=== PATIENT | female | born 1970 | race Caucasian/White ===

== ENCOUNTER 2019-10-03 12:03 | Outpatient (CLI) | payer OTHER, SELFPAY ==
--- NOTE | ~2019-10-03 | XR_ITS ---
EXAMINATION: XR chest 2V DATE: 10/03/2019 12:38 INDICATION: Asthma. TECHNIQUE: Frontal and lateral views of the chest were obtained. COMPARISON: Chest 2 views 11/19/2017 FINDINGS: The chest demonstrates clear lungs without pneumonia, pleural effusion, or pneumothorax. Th e heart size is normal. There is a small hiatal hernia. IMPRESSION: 1. Small hiatal hernia. Reviewed, dictated and finalized at location A. SIT OPERATOR IMPRESSION: 1. Small hiatal hernia.
--- NOTE | ~2019-10-03 | XR_ITS ---
XR sinus min 3V DATE: 10/03/2019 12:37 INDICATION: Vertigo, ear complaint. Asthma. Smoker. TECHNIQUE: 5 views COMPARISON: None FINDINGS: The paranasal sinuses are well-developed and aerated. No air-fluid level is likely apparent new comparison thickening is noted. The mastoid air cells are normally developed and aerated. IMPRESSION: Negative Reviewed, dictated and finalized at location B. ERY STARTER IMPRESSION: Negative
== END 2019-10-03 12:04 | disposition home or self-care (01) ==
PROVIDERS: PCP Family Medicine; Visit Provider Family Medicine
DX: J01.90 Acute sinusitis, unspecified (principal); J45.909 Unspecified asthma, uncomplicated; H81.10 Benign paroxysmal vertigo, unspecified ear; F17.200 Nicotine dependence, unspecified, uncomplicated
CPT/HCPCS: 70220; 71046

== ENCOUNTER 2019-10-13 08:42 | Outpatient (CLI) | payer OTHER, SELFPAY ==
[2019-10-13 17:23] LABS: Basophils Absolute Auto 0.1 K/mm3 (0.0-0.1); Basophils Percent Auto 0.7 % (0.2-1.2); Eosinophils Absolute Auto 0.6 K/mm3 (0-0.3); Eosinophils Percent Auto 5.2 % (0-4.4); Hemoglobin 15.7 g/dL (12.0-15.0); Immature Granulocyte Absolute 0.05 K/mm3 (0.00-0.031); Immature Granulocyte Percent A 0.5 % (0-0.5); Lymphocytes Absolute Auto 1.79 K/mm3 (0.9-3.2); Lymphocytes Percent Auto 16.3 % (18.3-44.2); Mean Corpuscular Hemoglobin 29.3 pg (26-34); Mean Corpuscular Volume 91.4 fl (80-100); Mean Platelet Volume 11.1 fl (7.4-10.4); Monocytes Absolute Auto 0.8 K/mm3 (0.1-0.6); Monocytes Percent Auto 6.8 % (2.6-8.5); Neutrophils Absolute Auto 7.8 K/mm3 (1.3-6.7); Neutrophils Percent Auto 70.5 % (45.5-73.1); Platelet Count Result 286 k/mm3 (150-375); Red Blood Count 5.36 M/mm3 (4.2-5.4); Red Cell Distribution Width 13.9 % (11.5-14.5)
[2019-10-13 17:30] LABS: Add Urine Microscopic? YES; Appearance Urine Clear (Clear); Bacteria Urine Trace /hpf; Bilirubin Urine Negative (Negative); Blood Urine 1+ (Negative); Color Urine Yellow (Yellow); Glucose Urine UA Negative (Negative); Ketones Urine Negative (Negative); Leukocyte Esterase Ur Negative LEU/UL (Negative); Mucus Urine Rare /lpf; Nitrate Urine Negative (Negative); Protein Urine Negative (Negative); Squamous Epithelial Cell Urine Many /hpf (Few); Urobilinogen Urine Negative mg/dL (<2.0); WBC Urine 0-3 /hpf
[2019-10-13 17:44] LABS: Alanine Aminotransferase 10 U/L (4-35); Albumin Level 4.1 g/dL (3.5-5.1); Alkaline Phosphatase 109 U/L (38-126); Aspartate Amino Transferase 14 U/L (14-36); Bilirubin,Total 0.5 mg/dL (0.2-1.3); Blood Urea Nitrogen 13 mg/dL (7-17); Calcium 9.9 mg/dL (8.4-10.2); Carbon Dioxide 28 mmol/L (22-30); Chloride 99 mmol/L (98-107); Cholesterol 264 mg/dL (0-200); Estimated Glomerular Filt Rate > 60; Glucose 98 mg/dL (65-105); HDL Direct 51 mg/dL; Potassium 4.8 mmol/L (3.4-5.0); Sodium 137 mmol/L (137-145); Triglycerides 94 mg/dL (<150)
[2019-10-13 17:53] LABS: LDL Cholesterol Direct 200 mg/dL
[2019-10-13 18:12] LABS: Thyroid Stimulating Hormone 0.992 uIU/mL (0.465-4.680)
[2019-10-13 18:50] LABS: Folic Acid > 20.0 ng/mL (2.76->20)
[2019-10-16 07:17] LABS: C-Peptide 1.57 ng/mL (0.80-3.85); FSH 31.9 mIU/mL (***); Progesterone 0.7 ng/mL (***)
[2019-10-17 14:21] LABS: Lipoprotein A 198 nmol/L (<75)
[2019-10-19 20:45] LABS: Estradiol, Ultrasensitive 205 pg/mL
== END 2019-10-13 08:43 | disposition home or self-care (01) ==
PROVIDERS: PCP Family Medicine; Visit Provider Family Medicine
DX: R79.89 Other specified abnormal findings of blood chemistry (principal); Z79.899 Other long term (current) drug therapy; E78.5 Hyperlipidemia, unspecified; F17.200 Nicotine dependence, unspecified, uncomplicated; N99.89 Other postprocedural complications and disorders of genitourinary system; Z98.51 Tubal ligation status; J01.90 Acute sinusitis, unspecified; R19.7 Diarrhea, unspecified
CPT/HCPCS: 36415; 80053; 80061; 81001; 82306; 82607; 82670; 82746; 83001; 83695; 84144; 84443; 84681; 85025; 86140

== ENCOUNTER 2020-07-09 00:36 | Outpatient (CLI) | payer OTHER, SELFPAY ==
[2020-07-09 19:48] LABS: SARS-CoV-2 RNA PCR Negative
== END 2020-07-09 00:37 | disposition home or self-care (01) ==
LOC: ANHCOVIDDT 00:44
PROVIDERS: Visit Provider Internal Medicine Gastroenterology
DX: Z01.818 Encounter for other preprocedural examination (principal); Z20.828 Contact with and (suspected) exposure to other viral communicable diseases
CPT/HCPCS: 87635; C9803; U0003

== ENCOUNTER 2020-07-12 00:24 | Day surgery (SDC) | payer OTHER, SELFPAY ==
[2020-07-08 10:35] VITALS: BMI 25.8
[2020-07-12 06:42] VITALS: BP 142/97; PULSE 98; RESP 20; TEMP 36.3; O2SAT 98; BMI 24.7
[2020-07-12] MEDS: LACTATED RINGERS 1,000 ML 150 ML IV CONT (06:47)
--- NOTE | 2020-07-12 07:08 | WPDANESEPPF ---
Anes - Initial Pre Proc Eval Procedure: Operation Date: 07/12/20 07:30 Proposed Procedures p Colonoscopy - Dennis Avitia MD Date/Time: 07/12/20 07:08 Surgeon: Dennis Avitia MD Pre Op Diagnosis: Constipation Patient Data Age: 50 Gender: F Height: 1.52 m Weight: 57.6 kg Last Vital Signs Temp 36.3 C L 07/12/20 06:42 Pulse 98 07/12/20 06:42 Resp 20 07/12/20 06:42 BP 142/97 H 07/12/20 06:42 Pulse Ox 98 07/12/20 06:42 Allergies Allergy/AdvReac Type Severity Reaction Status Date / Time amoxicillin [From Augmentin] AdvReac Mild Vomiting Verified 07/08/20 10:29 clavulanic acid AdvReac Mild Vomiting Verified 07/08/20 10:29 [From Augmentin] Home Medications Medication Instructions Recorded Confirmed Type fluticasone propionate 50 1 spray NASAL DAILY 10/03/19 07/08/20 History mcg/actuation nasal spray,suspension linaclotide 72 mcg capsule 72 mcg PO DAILY #30 cap 06/27/20 07/08/20 Rx peg 3350-electrolytes 236 240 ml PO Q10M #4000 ml 07/01/20 Rx gram-22.74 gram-6.74 gram-5.86 gram solution albuterol sulfate [Ventolin HFA] 1 puff INHALATION PRN PRN 07/08/20 07/08/20 History budesonide-formoterol 2 puff INHALATION BID 07/08/20 07/08/20 History cetirizine [Zyrtec] 10 mg PO DAILY 07/08/20 07/08/20 History geriatric multivitamin-min 1 tablet PO DAILY 07/08/20 07/08/20 History [One-A-Day 50 Plus] rosuvastatin 5 mg PO DAILY 07/08/20 07/08/20 History Patient hx anesthesia problems: none Family hx anesthesia problems: none PMFSH Past Medical History Medical History (Updated 06/27/20 @ 14:48 by Dennis Avitia MD) Adhesions of uterus Asthma FHx: migraine headaches Hyperlipidemia Irritable bowel syndrome with constipation Mucus in stool Tobacco abuse Surgical History Surgical History H/O section H/O: hysterectomy Family History Family History Father Family history of hypercholesterolemia Hypertension Mother Family history of hypercholesterolemia Social History Social History Smoking packs per day: 0.75 Smoking cigarettes per day: 15.0 Years smoked: 40 Smoking pack-years: 30.00 Smoking status: Current every day smoker Tobacco type: cigarettes Second hand tobacco smoke exposure: Yes Alcohol intake: current Drinks per week: 0 Alcohol use details: 1 OR 2 DRINKS PER YEAR Substance use: never Substance use type: does not use Living arrangements: with family Spiritual care concerns: No Anes - Eval Final PreProcedure Day of Procedure 07/12/20 07:08 Patient weight: normal Heart: regular rate and rhythm Lungs: clear to auscultation and normal air movement Airway: Mallampati scale class II Neurological: alert and oriented Last oral intake: >/= 8 hours ASA classification: II Emergent: no Anesthetic plan: proceed Anesthesia type and monitoring: general GIVS Informed Consent: The patient's anesthetic plan and its attendant risks and benefits were discussed with the patient/family/POA. Questions were solicited and answers provided to the satisfaction of the patient/family/POA.
--- NOTE | 2020-07-12 07:34 | WPDHPUPDATE1 ---
History and Physical Update Update Date/Time: 07/12/20 07:34 History and Physical has been reviewed, including an updated exam of the patient. There are NO changes in the patient's condition. Risks, benefits, and alternatives have been discussed and questions answered. Patient agrees to proceed with procedure.
[2020-07-12 08:00] VITALS: BP 132/59; PULSE 99; RESP 21; O2SAT 98
[2020-07-12 08:10] VITALS: BP 120/59; PULSE 95; RESP 22; O2SAT 100
[2020-07-12 08:20] VITALS: BP 134/71; PULSE 90; RESP 20; O2SAT 100
== END 2020-07-12 08:28 | disposition home or self-care (01) ==
PROVIDERS: PCP Family Medicine; Visit Provider Internal Medicine Gastroenterology
PROC: 0DJD8ZZ Inspection of Lower Intestinal Tract, Via Natural or Artificial Opening Endoscopic (ICD-10-PCS; CPT 45378; principal; 2020-07-12 07:30)
DX: Z12.11 Encounter for screening for malignant neoplasm of colon (principal); K51.40 Inflammatory polyps of colon without complications; K62.3 Rectal prolapse; K64.4 Residual hemorrhoidal skin tags; J45.909 Unspecified asthma, uncomplicated; F17.210 Nicotine dependence, cigarettes, uncomplicated
CPT/HCPCS: 45385; 88305; J2704; J7120

== ENCOUNTER 2020-09-28 21:44 | Emergency (ER) | payer OTHER, SELFPAY ==
[2020-09-28 21:55] VITALS: BP 179/98; PULSE 80; RESP 15; TEMP 36.3; O2SAT 100
[2020-09-28] MEDS: PROCHLORPERAZINE EDISYLATE 10 MG/2 ML VIAL IV PUSH (23:06)
--- NOTE | 2020-09-28 23:07 | ED.DIZZY ---
HPI - Dizziness General Chief Complaint: Dizziness Stated Complaint: n/v, vertigo Time Seen by Provider: 09/28/20 22:29 Source: patient and family Mode of arrival: ambulatory Limitations: no limitations History of Present Illness HPI Narrative: 50-year-old female She has a past history of high blood pressure and of episodic vertigo Complains of onset of dizziness tonight while she was sitting and reading She notes severe rotational vertigo with nausea, no auditory symptoms or hearing loss, no headache, no visual symptoms Symptoms improve if she remains very still but are triggered by any change in position head movements or by looking around MD elicited complaint: dizziness Severity: severe Description: room spinning Related Data Home Medications Medication Instructions Recorded Confirmed fluticasone propionate 50 1 spray NASAL DAILY 10/03/19 07/08/20 mcg/actuation nasal spray,suspension albuterol sulfate [Ventolin HFA] 1 puff INHALATION PRN PRN 07/08/20 07/08/20 budesonide-formoterol 2 puff INHALATION BID 07/08/20 07/08/20 cetirizine [Zyrtec] 10 mg PO DAILY 07/08/20 07/08/20 geriatric multivitamin-min 1 tablet PO DAILY 07/08/20 07/08/20 [One-A-Day 50 Plus] rosuvastatin 5 mg PO DAILY 07/08/20 07/08/20 Allergies Allergy/AdvReac Type Severity Reaction Status Date / Time amoxicillin [From Augmentin] AdvReac Mild Vomiting Verified 09/28/20 22:26 clavulanic acid AdvReac Mild Vomiting Verified 09/28/20 22:26 [From Augmentin] Review of Systems Review of Systems: All systems reviewed & are unremarkable except as noted in HPI and below Constitutional: Constitutional: Denies chills, Denies fatigue, Denies fever(s), Denies headache(s) and Denies weakness Eyes: Eyes: Reports no additional eye complaints and Denies change in vision ENT: Reports as per HPI, Reports vertigo, Reports dizziness, Denies headache(s), Denies epistaxis, Denies nasal congestion and Denies sore throat Cardiovascular: Cardiovascular: Denies leg edema, Denies palpitations and Denies dyspnea Respiratory: Respiratory: Denies cough and Denies dyspnea Gastrointestinal: Gastrointestinal: Denies no additional gastrointestinal complaints, Reports nausea and Reports vomiting Genitourinary: Genitourinary: Denies urinary frequency Musculoskeletal: Musculoskeletal: Denies deformity, Denies muscle weakness and Denies numbness Integumentary/Breasts: Skin/Breast: Denies rash and Denies wounds Neurologic: Reports vertigo, Denies headache(s), Denies focal weakness, Denies numbness and Denies weakness Psychiatric: Psychiatric: Reports no additional psychiatric complaints Endocrine: Endocrine: Denies fatigue and Denies palpitations Hematologic/Lymphatic: Hematologic/Lymphatic: Denies easy bleeding and Denies easy bruising Allergic/Immunologic: Allergic/Immunologic: Denies wheezing [facility] Past Medical History Medical History (Updated 09/28/20 @ 23:57 by Neeraj Peterson MD) Adhesions of uterus Asthma FHx: migraine headaches Hyperlipidemia Irritable bowel syndrome with constipation Mucus in stool Rectocele Tobacco abuse Surgical History Surgical History H/O section H/O: hysterectomy Family History Family History Father Family history of hypercholesterolemia Hypertension Mother Family history of hypercholesterolemia Social History Social History Smoking packs per day: 0.75 Smoking cigarettes per day: 15.0 Years smoked: 40 Smoking pack-years: 30.00 Smoking status: Current every day smoker Tobacco type: cigarettes Second hand tobacco smoke exposure: Yes Alcohol intake: current Drinks per week: 0 Substance use: never Substance use type: does not use Spiritual care concerns: No Exam Const: General: no acut
[2020-09-29 00:20] VITALS: BP 148/90; PULSE 83; RESP 20; O2SAT 100
== END 2020-09-29 00:22 | disposition home or self-care (01) ==
PROVIDERS: Emergency Provider Emergency Medicine
DX: H81.10 Benign paroxysmal vertigo, unspecified ear (principal); J45.909 Unspecified asthma, uncomplicated; E78.5 Hyperlipidemia, unspecified; K58.1 Irritable bowel syndrome with constipation; F17.210 Nicotine dependence, cigarettes, uncomplicated
CPT/HCPCS: 96374; 99284; J0780

== ENCOUNTER 2020-11-18 12:53 | Emergency (ER) | payer OTHER, SELFPAY ==
--- NOTE | ~2020-11-18 | XR_ITS ---
XR shoulder RT min 2V DATE: 11/18/2020 13:41 INDICATION: Anterior shoulder pain since lifting 50 pound bag 2 weeks ago. Limited range of motion. TECHNIQUE: 4 views COMPARISON: None FINDINGS: No fracture or dislocation, periosteal reaction or bone destruction or abnormal soft tissue calcification of the right shoulder. IMPRESSION: Negative Reviewed, dictated and finalized at location B. IMPRESSION: Negative
[2020-11-18 13:06] VITALS: BP 167/77; PULSE 88; RESP 14; TEMP 36.8; O2SAT 98
--- NOTE | 2020-11-18 13:10 | ED.UPPEXIN ---
HPI - Extremity Injury (Upper) General Chief Complaint: Extremity Injury, Upper Stated Complaint: Shoulder Pain Time Seen by Provider: 11/18/20 13:33 Source: patient and RN notes reviewed Mode of arrival: ambulatory Limitations: no limitations History of Present Illness HPI narrative: 50-year-old female presents concern for injury to her right shoulder. Reports for 2 weeks she has had shoulder pain, has been unable to lift her right shoulder fully, has weakness in the shoulder. Reports 2 weeks ago she was lifting a heavy backpack at work when she felt a sudden pain to the lateral and anterior shoulder joint. Reports she has been using ibuprofen every 4 hours, activity modification with no relief. Denies any improvement in pain over the last 2 weeks. MD complaint: injury to: right and shoulder Related Data Home Medications Medication Instructions Recorded Confirmed fluticasone propionate 50 1 spray NASAL DAILY 10/03/19 11/18/20 mcg/actuation nasal spray,suspension albuterol sulfate [Ventolin HFA] 1 puff INHALATION PRN PRN 07/08/20 11/18/20 budesonide-formoterol 2 puff INHALATION BID 07/08/20 11/18/20 Allergies Allergy/AdvReac Type Severity Reaction Status Date / Time amoxicillin [From Augmentin] AdvReac Mild Vomiting Verified 11/18/20 13:19 clavulanic acid AdvReac Mild Vomiting Verified 11/18/20 13:19 [From Augmentin] Review of Systems Review of Systems: Narrative: CONSTITUTIONAL: Denies malaise, chills, sweats, or fever. CARDIOVASCULAR: Denies chest pain, palpitations, or edema. RESPIRATORY: Denies cough or dyspnea. SKIN: Denies bruising, reports anterior shoulder swelling MUSCULOSKELETAL: Reports shoulder pain, swelling, decreased strength, decreased range of motion NEUROLOGIC: Denies numbness All systems reviewed & are unremarkable except as noted in HPI and below PMFSH Past Medical History Medical History (Updated 11/18/20 @ 13:55 by Elisa Carver NP) Adhesions of uterus Asthma FHx: migraine headaches Hyperlipidemia Irritable bowel syndrome with constipation Mucus in stool Rectocele Tobacco abuse Surgical History Surgical History H/O section H/O: hysterectomy Family History Family History Father Family history of hypercholesterolemia Hypertension Mother Family history of hypercholesterolemia Social History Social History Smoking packs per day: 0.75 Smoking cigarettes per day: 15.0 Years smoked: 40 Smoking pack-years: 30.00 Smoking status: Current every day smoker Tobacco type: cigarettes Second hand tobacco smoke exposure: Yes Alcohol intake: current Drinks per week: 0 Substance use: never Substance use type: does not use Spiritual care concerns: No Comments At time of signature, agree with nursing past medical, surgical, social and family history. There is no relevant family history pertinent to the presenting complaint Exam Narrative: Exam Narrative: GENERAL: Well-appearing, well-nourished, and in no acute distress. HEAD: Normocephalic, atraumatic. EYES: PERRLA, conjunctivae clear NECK: Supple. CHEST: Speaks in full sentences. No respiratory distress. HEART: Regular rate and rhythm. Normal and equal peripheral pulses. EXTREMITIES: Right shoulder has normal sensation, limited range of motion. Mild anterior edema no ecchymosis. 3/5 strength with right shoulder abduction and abduction. Normal sensation with sensitivity to light touch and pain. Lateral tenderness. No open wounds, no skin tenting, no devitalized tissue or atrophy, no trophic changes, no obvious deformity, alignment normal, nearby joints and structures intact. Distal pulses palpable and equal bilaterally, skin warm, dry, pink. Capillary refill less than 3 seconds. SKIN: Warm, dry, no rash. NEURO: Alert an
== END 2020-11-18 14:04 | disposition home or self-care (01) ==
PROVIDERS: Emergency Provider Nurse Practitioner
DX: S49.91XA Unspecified injury of right shoulder and upper arm, initial encounter (principal); X50.0XXA Overexertion from strenuous movement or load, initial encounter; F17.210 Nicotine dependence, cigarettes, uncomplicated; J45.909 Unspecified asthma, uncomplicated; E78.5 Hyperlipidemia, unspecified
CPT/HCPCS: 73030; 99213; G0463

== ENCOUNTER 2021-10-24 16:25 | Emergency (ER) | payer OTHER, SELFPAY ==
[2021-10-24 16:31] VITALS: BP 174/89; PULSE 87; RESP 18; TEMP 36.8; O2SAT 100
--- NOTE | 2021-10-24 16:52 | ED.LOWEXIN ---
HPI - Extremity Injury (Lower) General Chief Complaint: Extremity Injury, Lower Stated Complaint: Right Knee Injury Time Seen by Provider: 10/24/21 16:42 Source: patient Mode of arrival: ambulatory Limitations: no limitations History of Present Illness HPI Narrative: 51-year-old female presented for complaint of right knee pain for 6 days. She has since been seen by her PCP 4 days ago, was instructed on rice therapy, given Toradol, has taken ibuprofen and reports significant improvement in pain and swelling. She denies known injury, no redness, swelling, or bruising to the knee at this time. She is able to walk with a steady gait. Denies numbness, tingling, or weakness. She has the knee wrapped with an Arslan wrap at this time. Of note, she presented abnormal lab work and states she was told yesterday by her PCP to go to the emergency room for further evaluation for elevated CRP and ESR. Related Data Home Medications Medication Instructions Recorded Confirmed albuterol sulfate See Rx Instructions .ROUTE .COMPLEX 10/24/21 10/24/21 enalapril maleate 10/24/21 fexofenadine mg 10/24/21 fluticasone propion-salmeterol INHALATION 10/24/21 [Advair Diskus] fluticasone propionate INTRANASAL 10/24/21 montelukast 10 mg PO DAILY 10/24/21 10/24/21 pantoprazole 40 mg PO DAILY 10/24/21 10/24/21 Allergies Allergy/AdvReac Type Severity Reaction Status Date / Time amoxicillin [From Augmentin] AdvReac Mild Vomiting Verified 10/24/21 16:44 clavulanic acid AdvReac Mild Vomiting Verified 10/24/21 16:44 [From Augmentin] Review of Systems Review of Systems: CONSTITUTIONAL: Denies body aches, fever, chills EYES: Denies visual changes ENT: Denies rhinorrhea, congestion CARDIOVASCULAR: Denies chest pain, palpitations, or edema. RESPIRATORY: Denies cough or dyspnea. GASTROINTESTINAL: Denies abdominal pain, nausea, vomiting, or diarrhea. SKIN: Endorses skin changes to RLE for 10 years MUSCULOSKELETAL: Endorses knee pain NEUROLOGIC: Denies headache, numbness, tingling, or weakness. PSYCH: Denies depression or anxiety. All systems reviewed & are unremarkable except as noted in HPI and below PMFSH Past Medical History Medical History (Updated 10/24/21 @ 16:55 by Zully Adams APRN) Adhesions of uterus Asthma FHx: migraine headaches Hyperlipidemia Irritable bowel syndrome with constipation Mucus in stool Rectocele Regurgitation of food Tobacco abuse Surgical History Surgical History H/O section H/O: hysterectomy Family History Family History Father Family history of hypercholesterolemia Hypertension Mother Family history of hypercholesterolemia Social History Social History Smoking packs per day: 0.75 Smoking cigarettes per day: 15.0 Years smoked: 40 Smoking pack-years: 30.00 Smoking status: Current every day smoker Tobacco type: cigarettes Second hand tobacco smoke exposure: Yes Alcohol intake: current Drinks per week: 0 Alcohol use details: 1 OR 2 DRINKS PER YEAR Substance use: never Substance use type: does not use Spiritual care concerns: No Comments At time of signature, I have reviewed and agree with nursing past medical, surgical, social and family history unless otherwise noted. Please see nursing chart for further information. There is no relevant family history pertinent to the presenting complaint Exam Narrative: GENERAL: Well-appearing, well-nourished, and in no acute distress. HEAD: Normocephalic, atraumatic. EYES: PERRLA, conjunctivae clear NECK: Supple. CHEST: Speaks in full sentences. No respiratory distress. HEART: Regular rate and rhythm. Normal and equal peripheral pulses. EXTREMITIES: right LE has normal strength and sensation, normal range of motion with flexion/extension/r
== END 2021-10-24 16:55 | disposition home or self-care (01) ==
PROVIDERS: Emergency Provider Nurse Practitioner Family
DX: M25.562 Pain in left knee (principal); M25.561 Pain in right knee; F17.210 Nicotine dependence, cigarettes, uncomplicated; E78.5 Hyperlipidemia, unspecified; J45.909 Unspecified asthma, uncomplicated
CPT/HCPCS: 99212; G0463

== ENCOUNTER 2021-11-05 06:55 | Inpatient (IN) | payer OTHER, SELFPAY ==
[2021-11-05] VITALS (12 sets, daily range): BP systolic 116–180; BP diastolic 73–118; PULSE 85–115; RESP 16–23; TEMP 36.6–37.4; O2SAT 94–100; BMI 23.3
--- NOTE | 2021-11-05 | ECHO_ITS ---
Patient Info Name: Gael Sharma Age: 51 years : 1970 Gender: Female Ht: 60 in Wt: 122 lbs BSA: 1.54 m2 HR: 91 bpm BP: 100 / 100 mmHg Heart Rhythm: Sinus Rhythm Technical Quality: Fair Exam Date: 11/05/2021 1:03 PM Exam Location: [facility] Patient Status: Outpatient Admit Date: 11/05/2021 Staff Ordering Physician: Tom Malik DO [employer] Gun Perforator Operator: Lenore Sena RDCS Attending Provider: Clau Jo MD Referring Physician: King QUIROZ; Exam Type: CA echo doppler color flow Study Info Indications - chest pain Complete two-dimensional, color flow and Doppler transthoracic echocardiogram is performed. Summary 1. Complete two-dimensional, color flow and Doppler transthoracic echocardiogram is performed. 2. Left ventricular chamber dimension is normal. 3. Left ventricular systolic function is normal, estimated at 65-70%. 4. The left ventricular diastolic function is grade I diastolic dysfunction. 5. E/e' 18 is elevated. 6. There is mild to moderate mitral valve regurgitation. 7. No pulmonary hypertension, estimated pulmonary arterial systolic pressure is 33 mmHg. Left Ventricle E/e' 18 is elevated. Left ventricular chamber dimension is normal. Left ventricular systolic function is normal, estimated at 65-70%. The left ventricular diastolic function is grade I diastolic dysfunction. Right Ventricle Right ventricular systolic function is normal and with normal TAPSE 2.0 cm. Right ventricular chamber dimension is normal. Left Atria Left atrial chamber dimension is normal. Right Atria Right atrial chamber dimension is normal. Aortic Valve The aortic valve is trileaflet. There is no aortic valve stenosis. There is no aortic valve regurgitation. Pulmonic Valve There is no pulmonic regurgitation. Mitral Valve There is no mitral valve stenosis. There is mild to moderate mitral valve regurgitation. Tricuspid Valve There is no tricuspid valve regurgitation. No pulmonary hypertension, estimated pulmonary arterial systolic pressure is 33 mmHg. Pericardium/Pleural There is no pericardial effusion. Inferior Vena Cava Normal inferior vena cava with >50% collapse upon inspiration consistent with normal right atrial pressure, 5 mmHg. Aorta The aortic root size at the sinus of Valsalva is normal. Left Ventricular Outflow Tract Name Value Normal LVOT 2D LVOT Diameter 2.0 cm LVOT Doppler LVOT Peak Gradient 5 mmHg LVOT Mean Gradient 2 mmHg LVOT VTI 15 cm LVOT VTI/AV VTI Ratio 0.7 LVOT Stroke Volume 45 ml LVOT CO 4.0 l/min LVOT CI 2.6 l/min/m2 Pulmonic Valve Name Value Normal RVOT Doppler RVOT Pea
--- NOTE | ~2021-11-05 | XR_ITS ---
EXAMINATION: XR chest 2V DATE: 11/05/2021 07:23 INDICATION: Chest pain. TECHNIQUE: Frontal and lateral views of the chest were obtained. COMPARISON: Chest 2 views 10/03/2019 FINDINGS: There is no pneumonia, pleural effusion, or pneumothorax. The heart size is normal. There i s a moderate-sized hiatal hernia. IMPRESSION: 1. Moderate-sized hiatal hernia. Reviewed, dictated and finalized at location A. ENTERS HELPER
--- NOTE | ~2021-11-05 | US_ITS ---
EXAMINATION: US abdomen limited DATE: 11/05/2021 08:05 INDICATION: Abdominal pain. TECHNIQUE: Multiple grayscale and Doppler ultrasound images of the abdomen were obtained. COMPARISON: CT abdomen and pelvis 06/26/2005 FINDINGS: The visualized portions of the head and body of the pancreas are normal. The liver is ramiro l without focal lesion. There is normal flow in main portal vein. The gallbladder is distended and co ntains gallstones. Gallbladder wall thickening is noted. There is no sonographic Barriga sign. The com mon duct is normal and measures 4 mm. IMPRESSION: 1. Acute cholecystitis. Reviewed, dictated and finalized at location A. S WASHER IMPRESSION: 1. Acute cholecystitis.
--- NOTE | ~2021-11-05 | CT_ITS ---
EXAMINATION: CTA chest PE abdomen pel EXAM DATE: 11/05/2021 09:08 INDICATION: Shortness of breath, abdominal pain, nausea and vomiting. TECHNIQUE: Spiral CTA of the chest (pulmonary arteries) was performed with 100 cc Omnipaque 350 intr avenous contrast injection. Images were acquired during the pulmonary arterial phase. Coronal maxi mum intensity projection 3D-reconstructions were created by the technologist on dedicated workstation . Axial, coronal and sagittal reformatted images were reviewed. Spiral CT of the abdomen and pelvis was then performed with the same intravenous contrast injection. Axial, coronal and sagittal reform atted images were reviewed. The dose-length product (DLP) for this examination was 416.22 mGy-cm. T he exposure was tailored according to patient size (auto mA exposure control), and iterative reconst ruction (ASIR) was used as additional dose reduction technique. There is prior abdomen pelvis CT fro 2004 for comparison FINDINGS: There is mildly distended fluid-filled esophagus with moderate wall thickening, appearance is consistent with acute esophagitis. Gastroesophageal junction is in expected position. There is a c ontained pocket of fluid left lower thoracic paraspinal location just above the gastroesophageal junc tion measuring 6.4 x 5.0 cm. Differential diagnosis for this includes large distal esophageal diverti culum or less likely gastric cardial diverticulum which has herniated above the diaphragm. This is pr obably incidental could be evaluated with upper GI examination after patient's acute issues have reso lved. CHEST: Pulmonary arteries are well opacified and without intraluminal filling defects. No thoracic aortic dissection. There is mild emphysema. Calcified lung granuloma. No acute airspace disease. Th ere are no pleural or pericardial effusions. Tracheobronchial tree is patent. There is no mediast inal, hilar or axillary lymphadenopathy. There is no pneumothorax. Heart normal in size. No carlitos dence of coronary arterial calcification. ABDOMEN PELVIS: The liver, spleen, adrenal glands and pancreas are unremarkable. Gallbladder is mode rately distended with enhancing mucosa, gallbladder wall edema and adjacent fat stranding. No calcifi ed cholelithiasis. Appearance is consistent with acute cholecystitis. Portal and splenic veins are patent. Kidneys enhance symmetrically. There is no hydronephrosis. T he uterus is not identified and has likely been surgically resected. The bladder is unremarkable. T here is no retroperitoneal or pelvic lymphadenopathy. There is mild to moderate scattered arteriosc lerotic disease. The appendix is normal. There is expected amount of colonic stool. No free intra peritoneal gas. There are no osteoblastic or osteolytic lesions identified. IMPRESSION: 1. Findings consistent with acute cholecystitis. 2. Acute esophagitis. Large distal esophageal diverticulum or less likely herniated gastric cardial diverticulum. Probably incidental but could predispose to reflux, esophagitis. Follow-up nonemergent upper GI exam. 3. No pulmonary emboli. Reviewed, dictated and finalized at location A. ARY TEACHING ASSISTANT IMPRESSION: 1. Findings consistent with acute cholecystitis. 2. Acute esophagitis. Large distal esophageal diverticulum or less likely her niated gastric cardial diverticulum. Probably incidental but could predispose t o reflux, esophagitis. Follow-up nonemergent upper GI exam. 3. No pulmonary emboli.
--- NOTE | 2021-11-05 07:02 | ECG_ITS ---
Measurements Intervals [place] Rate: 92 P: 76 WI: 147 QRS: 65 QRSD: 83 T: 74 QT: 376 QTc: 467 Interpretive Statements SINUS RHYTHM MODERATE ST DEPRESSION [0.05+ mV ST DEPRESSION] PEAKED T-WAVES, CONSIDER ELECTROLYTE ABNORMALITY BORDERLINE ECG NO PREVIOUS ECG AVAILABLE FOR COMPARISON Electronically Signed On 11-05-2021 13:17:44 ICING MIXER by Puma Escobar M.D.
--- NOTE | 2021-11-05 07:42 | ED.CHESTPAIN ---
HPI - Chest Pain General Chief Complaint: Chest Pain Stated Complaint: chest pain Time Seen by Provider: 11/05/21 07:14 Source: RN notes reviewed History of Present Illness HPI narrative: Patient presents emergency department from home for chest pain. Patient states symptoms been constant since Wednesday afternoon the pain is located in the lower midsternal chest and upper abdomen does not radiate described as a pressure in nature that goes through to the back associated with several episodes of nausea and vomiting. Patient states nothing makes the pain better or worse tried taking ibuprofen and Gas-X at home with no relief she denies any fevers or chills shortness of breath diarrhea or any other symptoms Related Data Home Medications Medication Instructions Recorded Confirmed albuterol sulfate See Rx Instructions .ROUTE .COMPLEX 10/24/21 10/24/21 enalapril maleate 10/24/21 fexofenadine mg 10/24/21 fluticasone propion-salmeterol INHALATION 10/24/21 [Advair Diskus] fluticasone propionate INTRANASAL 10/24/21 montelukast 10 mg PO DAILY 10/24/21 10/24/21 pantoprazole 40 mg PO DAILY 10/24/21 10/24/21 Allergies Allergy/AdvReac Type Severity Reaction Status Date / Time amoxicillin [From Augmentin] AdvReac Mild Vomiting Verified 10/24/21 16:44 clavulanic acid AdvReac Mild Vomiting Verified 10/24/21 16:44 [From Augmentin] clindamycin AdvReac Diarrhea Verified 11/05/21 06:59 Review of Systems Review of Systems: Gen.: Denies fevers or chills ENT: Denies congestion Respiratory: Denies shortness of breath or cough CV see HPI GI: Reports upper abdominal pain nausea vomiting denies diarrhea Musculoskeletal: Denies back pain or muscle pain Neuro: Denies numbness, tingling, weakness or focal weakness Skin: Denies rash Except as documented, all other systems reviewed and negative PMF Past Medical History Medical History Adhesions of uterus Asthma FHx: migraine headaches Hyperlipidemia Irritable bowel syndrome with constipation Mucus in stool Rectocele Regurgitation of food Tobacco abuse Surgical History Surgical History H/O section H/O: hysterectomy Family History Family History Father Family history of hypercholesterolemia Hypertension Mother Family history of hypercholesterolemia Social History Social History Smoking packs per day: 0.75 Smoking cigarettes per day: 15.0 Years smoked: 40 Smoking pack-years: 30.00 Smoking status: Current every day smoker Tobacco type: cigarettes Second hand tobacco smoke exposure: Yes Alcohol intake: current Drinks per week: 0 Alcohol use details: 1 OR 2 DRINKS PER YEAR Substance use: never Substance use type: does not use Spiritual care concerns: No Exam Narrative: APPEARANCE: No acute distress, nontoxic, resting in bed HEENT: Normocephalic, atraumatic, OMM RESPIRATORY: No respiratory distress, clear to auscultation bilaterally with no rhonchi wheezing or rales CARDIOVASCULAR: RRR s murmur ABDOMINAL: Soft nondistended tender palpation epigastric right upper quadrant left upper quadrant no tenderness right lower quadrant left lower quadrant no rebound or guarding MUSCULOSKELETAl: Moves all extremities. No clubbing, cyanosis or edema. NEURO: Awake and alert. Following commands, speech normal, no focal deficits SKIN:: Warm, dry. Normal Color PSYCHIATRIC: Normal affect/mood Course Course Emergency Course: Called and discussed with Dr. Mcrae for general surgery agrees with consult with patient started on Zosyn Discussed with Dr. Malik agrees with consult agrees plan for aspirin no further anticoagulation at this time Discussed Dr. Jo presentation work-up agrees with admission Discussed with patient a
[2021-11-05] MEDS: ONDANSETRON INJ 4 MG/2 ML VIAL IV PUSH (07:45)
[2021-11-05] MEDS: SODIUM CHLORIDE 0.9% IV 1,000 ML 999 ML IV CONT (07:45)
[2021-11-05] MEDS: MORPHINE SULFATE (*CRX) 4 MG/ML INJ IV PUSH ×5 (07:50→16:26)
[2021-11-05] MEDS: ASPIRIN 81 MG CHEWABLE TABLET 324 MG PO (07:51)
[2021-11-05 08:12] LABS: Prothrombin Time 12.7 Seconds (11.1-14.7)
[2021-11-05 08:13] LABS: Partial Thromboplastin Time 35.2 SECONDS (22.3-36.8)
[2021-11-05 08:15] LABS: Alanine Aminotransferase 11 U/L (4-35); Alkaline Phosphatase 179 U/L (38-126); Anion Gap 11 mmol/L (8-16); Aspartate Amino Transferase 21 U/L (14-36); Bilirubin,Total 1.2 mg/dL (0.2-1.3); Blood Urea Nitrogen 9 mg/dL (7-17); Calcium 10.2 mg/dL (8.4-10.2); Carbon Dioxide 25 mmol/L (22-30); Chloride 99 mmol/L (98-107); Estimated CRCL calculation 68 ml/min; Estimated Glomerular Filt Rate > 60; Glucose 137 mg/dL (65-110); Lipase 45 U/L (23-300); Potassium 4.3 mmol/L (3.4-5.0); Sodium 135 mmol/L (137-145)
[2021-11-05 08:19] LABS: Basophils Absolute Auto 0.1 K/mm3 (0.0-0.1); Basophils Percent Auto 0.6 % (0.2-1.2); Eosinophils Absolute Auto 0.3 K/mm3 (0-0.3); Eosinophils Percent Auto 1.6 % (0-4.4); Hematocrit 50.3 % (37.0-47.0); Hemoglobin 16.4 g/dL (12.0-15.0); Immature Granulocyte Absolute 0.08 K/mm3 (0.00-0.031); Immature Granulocyte Percent A 0.4 % (0-0.5); Lymphocytes Absolute Auto 1.13 K/mm3 (0.9-3.2); Lymphocytes Percent Auto 5.9 % (18.3-44.2); Mean Corpuscular HGB Conc 32.6 g/dl (32-36); Mean Corpuscular Volume 85.8 fl (80-100); Monocytes Percent Auto 5.2 % (2.6-8.5); Neutrophils Absolute Auto 16.6 K/mm3 (1.3-6.7); Neutrophils Percent Auto 86.3 % (45.5-73.1); Platelet Count Result 325 k/mm3 (150-375); Red Blood Count 5.86 M/mm3 (4.2-5.4); Red Cell Distribution Width 16.4 % (11.5-14.5); White Blood Count 19.2 K/mm3 (4.5-10.0)
[2021-11-05 08:29] LABS: Troponin I 0.161 ng/mL (0.000-0.034)
--- NOTE | 2021-11-05 08:31 | ECG_ITS ---
Measurements Intervals [place] Rate: 86 P: 78 [place]: 139 QRS: 75 QRSD: 85 T: 78 QT: 403 QTc: 484 Interpretive Statements SINUS RHYTHM PEAKED T-WAVES, CONSIDER ELECTROLYTE ABNORMALITY BASELINE ARTIFACT BORDERLINE ECG COMPARED TO ECG 11/05/2021 07:39:00 NO SIGNIFICANT CHANGES Electronically Signed On 11-05-2021 13:19:20 [employer]ORDER PROTECTION OFFICER by Puma Escobar M.D.
[2021-11-05 10:57] LABS: Lactic Acid Reflex 1.2 mmol/L (0.7-2.1)
--- NOTE | 2021-11-05 11:07 | PM.CNGS ---
Assessment and Plan Assessment and plan (1) Acute cholecystitis: Code(s): K81.0 - Acute cholecystitis Status: Acute Assessment and Plan: CTA and abdominal ultrasound reviewed and discussed with the patient in detail. She has evidence of acute calculous cholecystitis. Her history and exam does correlate with these findings as well. She has a white blood cell count of 19,000 and LFTs are normal other than a slightly elevated alk-phos. When seen in the ER, her abdominal pain remains constant, but has improved with IV analgesics. She also has a significantly elevated troponin on admission. Cardiology has been consulted and will be seeing the patient as well. I discussed with the patient that it would be best to allow Cardiology to evaluate her prior to proceeding with any surgery to rule out any acute cardiac issues. I discussed treatment options with the patient, including proceeding with a laparoscopic cholecystectomy under general anesthesia by Dr. Mcrae depending on Cardiology's recommendations. Description of the procedure, risks, benefits, expected outcomes, and expected recovery were discussed with the patient in detail. All questions were answered. For now, continue broad-spectrum IV antibiotics, IV fluids, and analgesics. Thank you for allowing us to see the patient in consultation and we will continue to follow along with you. (2) Sepsis: Code(s): A41.9 - Sepsis, unspecified organism Status: Acute Assessment and Plan: Sepsis criteria met on admission. Source is likely her gallbladder. See plan above. Continue broad-spectrum IV antibiotics, IV fluids, and monitor labs. Blood cultures pending. (3) Elevated troponin: Code(s): R77.8 - Other specified abnormalities of plasma proteins Status: Acute Assessment and Plan: Troponin 0.161 on admission. Cardiology consulted, will await their recommendations. (4) Asthma: Code(s): J45.909 - Unspecified asthma, uncomplicated Status: Acute (5) Irritable bowel syndrome with constipation: Code(s): K58.1 - Irritable bowel syndrome with constipation Status: Acute (6) Tobacco abuse: Code(s): Z72.0 - Tobacco use Status: Acute Assessment and Plan: Encouraged cessation. Additional Plan I have discussed the patient's case and plan of care with Dr. Mcrae. History of Present Illness Consult details Consult date: 11/05/21 Reason for consult: other (Acute cholecystitis) Requesting physician: Lawanda,Isaac C., DO Narrative: This is a 51-year-old female with a history of asthma and IBS with constipation, who presented to the emergency department with complaints of epigastric abdominal pain for 2 days. She reports seeing an social media marketing specialist on Wednesday morning due to right knee swelling and pain for the past month. Following her appointment, she ate a large breakfast consisting of 2 eggs, silva, hash browns, and toast. Within the first few hours after eating, she developed bloating and felt ?uncomfortable?. She began to develop epigastric abdominal pain that continued to worsen throughout the day. Initially, she attributed this to her IBS with constipation. She had taken ibuprofen and Gas-X without relief. Into the evening, she began having nausea and vomiting. She states her abdominal pain radiates into her mid back. She denies ever having this pain in the past. Her abdominal pain continued throughout the day yesterday and she was unable to eat or drink. She reports difficulty even sleeping because of being so uncomfortable with her abdominal pain. This morning, since her abdominal pain has persisted, she decided to come into the ER for evaluation. Chest x-ray showed a moderate-sized hiatal hernia. CTA of the chest abdomen and pelvis showed acute cholecystitis, acute esophagitis with a large distal esophageal diverticulum or less likely herniated gastric cardial diverticulum, and no pulmonary emboli.
[2021-11-05] MEDS: SODIUM CHLORIDE 0.9% IV 1,000 ML 125 ML IV CONT (11:20)
[2021-11-05 11:21] LABS: Troponin I 0.141 ng/mL (0.000-0.034)
--- NOTE | 2021-11-05 12:17 | ADMGEN ---
This patient, Gael Sharma, was admitted to Intensive Care Unit-4. Patient/family oriented to hospital policies and general routines including ID bracelet, bed and alarms, visiting hours, pain management, procedures, bathroom and other care routines, personal items, smoking policy, room service/diet, and visiting hours. Information on how to activate the Rapid Response Team has been discussed. Patient/Family are encouraged to report perceived risks to care and to ask questions if they do not understand what they are told or what they should do.
--- NOTE | 2021-11-05 12:41 | PM.CNCAR ---
Assessment and Plan Assessment and plan (1) Elevated troponin: Code(s): R77.8 - Other specified abnormalities of plasma proteins Status: Acute Assessment and Plan: Mild and trending down which is not consistent with ACS event. Obtain echo to assess for wall motion abnormalities. (2) Hyperlipidemia: Code(s): E78.5 - Hyperlipidemia, unspecified Status: Acute Assessment and Plan: Advise to maintain a low saturated fat diet. (3) Smoker: Code(s): F17.200 - Nicotine dependence, unspecified, uncomplicated Status: Acute Assessment and Plan: Counseled regarding smoking cessation. (4) Acute cholecystitis: Code(s): K81.0 - Acute cholecystitis Status: Acute Assessment and Plan: General surgery consulted. (5) Preop cardiovascular exam: Code(s): Z01.810 - Encounter for preprocedural cardiovascular examination Status: Acute Assessment and Plan: If echo is unremarkable, then may proceed to noncardiac surgery which is cholecystectomy without further cardiac workup at this time. History of Present Illness History of Present Illness Consult date/time: 11/05/21 12:41 Reason for consult: Chest pain. 51 yr old woman who is my regular cardiology patient presents to ER for chest pains. She has a history of dyslipidemia, smoking, asthma, family history of CAD with father having CABG at age 43. Reports for last 2 days she started having RUQ and epigastric abdominal pains with nausea and vomiting. She can walk 1 mile without any problems. She smokes 7 cigarettes per day. She has lightheadedness intermittently while seated or standing. She drinks 1 cup of cofffee and 4 cups of water a day. Denies orthopnea, PND, edema, palpitations. EKG shows sinus rhythm with peaked T waves. WBC 19.2, Hb 16.4, sodium 135, Tropon 0.161 then 0.141. Alk Phos 179. CT Abd shows acute cholecystitis and acute esophagitis. No pulm embolism. Mild emphysema. Cardiovascular Procedures Electrophysiology:: 10/30/19 EKG: Sinus rhythm. 10/12/16 EKG: Sinus rhythm. Stress Tests:: 10/12/16 Chest xray: Small hiatal hernia. Reason For Visit: Acute cholecystitis/non ST elevation [place] Review of Systems Review of Systems: All systems reviewed & are unremarkable except as noted in HPI and below Constitutional: Constitutional: Reports as per HPI, Denies chills and Denies fever(s) Cardiovascular: Cardiovascular: Reports as per HPI, Denies chest pain, Denies leg edema, Denies lightheadedness and Denies dyspnea on exertion Respiratory: Respiratory: Reports as per HPI and Denies dyspnea Gastrointestinal: Gastrointestinal: Reports as per HPI, Reports abdominal pain, Reports heartburn, Reports nausea and Reports vomiting Genitourinary: Genitourinary: Reports as per HPI and Denies dysuria Musculoskeletal: Musculoskeletal: Reports as per HPI Neurologic: Reports as per HPI, Denies dizziness and Denies syncope [facility] Past Medical History Medical History Adhesions of uterus Asthma FHx: migraine headaches Hyperlipidemia Irritable bowel syndrome with constipation Mucus in stool Rectocele Regurgitation of food Tobacco abuse Surgical History Surgical History H/O section x3 H/O: hysterectomy History of laparoscopy Previous diagnostic laparoscopy in 2003 at [place] with findings of pelvic adhesions, patient reports two additional surgeries for adhesiolysis at other facilities Family History Family History Father Family history of hypercholesterolemia Hypertension Coronary bypass graft mechanical complication Mother Family history of hypercholesterolemia Rheumatoid arthritis Social History Social History Smoking packs per day: 0.5 Smoking cigarettes per d
--- NOTE | 2021-11-05 13:30 | PM.IMHP ---
H&P: HPI History of Present Illness Date/Time: 11/05/21 13:30 Chief Complaint: Epigastric pain. Narrative: This is a 51-year-old female smoker with hypertension, hyperlipidemia, asthma, irritable bowel syndrome with constipation, and GERD who presented to the emergency department for evaluation of epigastric pain. Wednesday morning she had an appointment with an orthopedic regarding right knee pain and thereafter she had a large breakfast including eggs, silva, hash browns, and toast. Shortly after eating she developed abdominal bloating and discomfort in the epigastric region that became more intense as the day progressed. Initially she attributed her symptoms to IBS and she took some ibuprofen and Gas-X without benefit. That evening she developed nausea and vomiting and she has not been able to eat or drink anything since that time. The pain has been constant since Wednesday evening and has now settled more in the right upper quadrant. She has a difficult time describing the pain but reports that is severe and really unrelenting though it seems to come and go in waves of intensity. It does radiate somewhat through to the back. On arrival to the emergency department she was found to have elevation of her troponins in addition to findings consistent with acute cholecystitis. She has no known history of gallbladder disease or coronary artery disease. She had seen Dr. Malik a couple of years ago and he ordered an echocardiogram and exercise stress test but she never had that done and she has not had any exertional chest pain or shortness of breath since that time. 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 No orthopnea, PND, edema, syncope, or near syncope. To her knowledge she has not had a fever. She denies hematemesis, melena, and hematochezia. Review of Systems Review of Systems: Twelve systems were reviewed. Weight has remained stable. She has intermittent issues with GERD symptom and she has seen Dr. Avitia in the past for vomiting and issues with regurgitation. She apparently has some sort of esophageal diverticulum that was noted on imaging again today. [facility] Past Medical History Medical History Asthma Gastroesophageal reflux disease Hiatal hernia Hyperlipidemia Hypertension Irritable bowel syndrome with constipation Rectocele Tobacco abuse Surgical History Surgical History History of 3 sections History of colonoscopy with polypectomy History of hysterectomy History of laparoscopy Previous diagnostic laparoscopy in 2003 at [place] with findings of pelvic adhesions, patient reports two additional surgeries for adhesiolysis at other facilities. Family History Family History Father Family history of hypercholesterolemia Hypertension Coronary bypass graft mechanical complication Mother Family history of hypercholesterolemia Rheumatoid arthritis Social History Social History (Updated 11/05/21 @ 23:23 by Mary Coleman PA-C) Social History: Surrogate decision maker: Dorian Sharma, spouse. Code status: Full code. Smoking packs per day: 0.5 Smoking cigarettes per day: 10.0 Years smoked: 30 Smoking pack-years: 15.00 Smoking status: Current every day smoker Tobacco type: cigarettes Second hand tobacco smoke exposure: Yes Alcohol intake: current Drinks per week: 0 Alcohol use details: 1 to 2 drinks per year. Substance use: never Substance use type: does not use Living arrangements: with family Additional living arrangements comments: The patient lives in [place] with her . They have 3 children. Occupation/Education: occupation Additional occupation/education comments: [employer] Meds Home Medications and Allergies Home Medications Medication Instructions Recorded Confirmed Type
[2021-11-05 13:52] LABS: Troponin I 0.123 ng/mL (0.000-0.034)
[2021-11-05] MEDS: IBUPROFEN IV 800 MG/200 ML 800 MG/200 ML BAG 400 MG IVPB (18:28)
[2021-11-05] MEDS: MORPHINE SULFATE (*CRX) 2 MG/ML INJ IV PUSH (20:03)
[2021-11-05] MEDS: SODIUM CHLORIDE 0.9% IV 1,000 ML 100 ML IV CONT (20:20)
[2021-11-06] VITALS (15 sets, daily range): BP systolic 119–176; BP diastolic 71–106; PULSE 73–98; RESP 16–21; TEMP 36.1–37; O2SAT 94–100
[2021-11-06] MEDS: ONDANSETRON INJ 4 MG/2 ML VIAL IV PUSH (00:10)
[2021-11-06] MEDS: MORPHINE SULFATE (*CRX) 2 MG/ML INJ IV PUSH ×2 (00:11→06:16)
[2021-11-06 04:15] LABS: Basophils Absolute Auto 0.1 K/mm3 (0.0-0.1); Basophils Percent Auto 0.6 % (0.2-1.2); Eosinophils Absolute Auto 0.7 K/mm3 (0-0.3); Eosinophils Percent Auto 4.8 % (0-4.4); Hemoglobin 13.7 g/dL (12.0-15.0); Immature Granulocyte Absolute 0.06 K/mm3 (0.00-0.031); Immature Granulocyte Percent A 0.4 % (0-0.5); Lymphocytes Absolute Auto 1.14 K/mm3 (0.9-3.2); Lymphocytes Percent Auto 7.9 % (18.3-44.2); Mean Corpuscular HGB Conc 32.6 g/dl (32-36); Mean Corpuscular Volume 85.7 fl (80-100); Mean Platelet Volume 10.1 fl (7.4-10.4); Monocytes Absolute Auto 0.9 K/mm3 (0.1-0.6); Monocytes Percent Auto 6.4 % (2.6-8.5); Neutrophils Absolute Auto 11.5 K/mm3 (1.3-6.7); Neutrophils Percent Auto 79.9 % (45.5-73.1); Platelet Count Result 274 k/mm3 (150-375); Red Cell Distribution Width 15.9 % (11.5-14.5); White Blood Count 14.4 K/mm3 (4.5-10.0)
[2021-11-06 04:26] LABS: Alanine Aminotransferase 22 U/L (4-35); Albumin Level 3.5 g/dL (3.5-5.1); Alkaline Phosphatase 118 U/L (38-126); Anion Gap 4 mmol/L (8-16); Aspartate Amino Transferase 25 U/L (14-36); Bilirubin,Total 1.2 mg/dL (0.2-1.3); Blood Urea Nitrogen 7 mg/dL (7-17); Calcium 8.3 mg/dL (8.4-10.2); Carbon Dioxide 30 mmol/L (22-30); Chloride 102 mmol/L (98-107); Estimated CRCL calculation 59 ml/min; Estimated Glomerular Filt Rate > 60; Glucose 110 mg/dL (65-110); Magnesium 1.6 mg/dL (1.6-2.3); Potassium 3.6 mmol/L (3.4-5.0); Sodium 136 mmol/L (137-145)
[2021-11-06] MEDS: IBUPROFEN IV 800 MG/200 ML 800 MG/200 ML BAG 400 MG IVPB ×2 (05:24)
--- NOTE | 2021-11-06 07:37 | PM.PNGS ---
Progress Note: A&P Assessment and Plan (1) Cholelithiasis and acute cholecystitis with obstruction: Code(s): K80.01 - Calculus of gallbladder with acute cholecystitis with obstruction Status: Acute Assessment and Plan: patient continuing to have right upper quadrant pain and tenderness. Will go ahead with laparoscopic cholecystectomy later this morning. I discussed the procedure with her. The risks the benefits possibility of conversion to open surgery were discussed. The usual length of recovery was discussed. All questions were answered. She agrees to go ahead. (2) Esophageal diverticulum: Code(s): Q39.6 - Congenital diverticulum of esophagus Status: Chronic Assessment and Plan: Can be evaluated as an outpatient. (3) Smoker: Code(s): F17.200 - Nicotine dependence, unspecified, uncomplicated Status: Chronic Assessment and Plan: Increases surgical risks. Subjective Subjective Date/Time Seen: 11/06/21 07:37 Patient reports: pain is less ( still having pain. Not as severe. Requiring analgesics regularly.), tolerating liquids well, no flatus, no bowel movement and afebrile Review of Systems Review of Systems: All systems reviewed & are unremarkable except as noted in HPI and below Constitutional: Constitutional: Denies body ache(s), Denies chills, Denies fever(s), Denies headache(s), Reports lethargy and Reports poor appetite Cardiovascular: Cardiovascular: Denies chest pain and Denies dyspnea Respiratory: Respiratory: Denies cough and Denies dyspnea Gastrointestinal: Gastrointestinal: Reports as per HPI, Reports abdominal pain, Denies heartburn, Denies diarrhea, Denies nausea and Denies vomiting Exam Const: General: cooperative, comfortable, no acute distress, alert, awake and tired appearing; No confusion Nutritional Appearance: thin Orientation/consciousness: patient oriented x3 and No confusion GI: Inspection: normal to inspection, non-distended and scaphoid GI Palp: Yes Soft to palpation, Yes Tenderness to palpation present (GI) ( Right upper quadrant, not as severe as last night) and Yes Guarding due to palpation present (GI) Auscultation: Hypoactive bowel sounds present Neuro: General: patient oriented x3, no focal motor deficits and No confusion Extrem: General: no calf tenderness and no edema Psych: Affect: normal affect Insight: Good insight present (Psych) Judgement: Good judgement present (Psych) Objective Data Vital Signs Vital Signs: Vital Signs - 24 hr 11/05/21 10:50 11/05/21 10:52 11/05/21 11:46 Temperature 37.4 C Pulse Rate 106 H 91 Respiratory Rate 16 16 Blood Pressure 177/106 H 180/100 H Pulse Oximetry 98 97 96 11/05/21 13:54 11/05/21 14:00 11/05/21 16:00 Temperature 36.6 C Pulse Rate 94 94 101 H Respiratory Rate 16 22 H Blood Pressure 176/106 H 168/100 H Pulse Oximetry 98 97 11/05/21 18:00 11/05/21 18:18 11/05/21 20:00 Temperature 37.2 C 36.6 C Pulse Rate 115 H 102 H Respiratory Rate 17 Blood Pressure 162/90 H 116/73 Pulse Oximetry 94 11/05/21 22:00 11/06/21 00:00 11/06/21 02:00 Temperature 36.9 C Pulse Rate 85 95 78 Respiratory Rate 19 Blood Pressure 149/88 H Pulse Oximetry 96 11/06/21 04:00 11/06/21 06:00 11/06/21 07:25 Temperature 36.7 C Pulse Rate 90 86 87 Respiratory Rate 21 H Blood Pressure 146/85 H Pulse Oximetry 95 Intake/Output Intake/Output: Intake & Output 11/03/21 11/04/21 11/05/21 11/06/21 23:59 23:59 23:59 23:59 Intake Total 2450 750 Balance 2450 750 Meds/Results Medications: Active Medications Generic Name Dose Route Start Last Admin Trade Name Pepeq PRN Reason Stop Dose Admin Acetaminophen 1,000 mg 11/06/21 07:34 Acetaminophen 500 Mg Tablet PO 11/06/21 07:35 ONCE STA Chlorhexidine Gluconate 1 applic 11/06/21 07:34 Chlorhexidine Gluconate 4% Dalia 120 Ml Btl TOPICAL 11/06/21 07:35 ONCE ONE F
[2021-11-06] MEDS: FLUTICASONE/SALMETEROL 115-21 MCG INHALER 1 PUFF 2 PUFF INHALATION (08:10)
--- NOTE | 2021-11-06 08:14 | PM.PNCARD ---
Progress Note: A&P Assessment and Plan (1) Elevated troponin: Code(s): R77.8 - Other specified abnormalities of plasma proteins Status: Deleted Assessment and Plan: Probably due to sepsis from cholecystitis. Mild and trending down which is not consistent with ACS event. Echo shows EF 65-70%, grade I diastolic dysfunction (E/e' 18), mild-mod MR. (2) Hyperlipidemia: Code(s): E78.5 - Hyperlipidemia, unspecified Status: Acute Assessment and Plan: Advise to maintain a low saturated fat diet. (3) Smoker: Code(s): F17.200 - Nicotine dependence, unspecified, uncomplicated Status: Chronic Assessment and Plan: Counseled regarding smoking cessation. (4) Acute cholecystitis: Code(s): K81.0 - Acute cholecystitis Status: Deleted Assessment and Plan: General surgery consulted. (5) Preop cardiovascular exam: Code(s): Z01.810 - Encounter for preprocedural cardiovascular examination Status: Acute Assessment and Plan: May proceed to noncardiac surgery which is cholecystectomy without further cardiac workup at this time. Obtain posop EKG> Subjective Date/time seen: 11/06/21 08:14 Denies chest pain or sob. Abdominal pain is constant but better. Exam Const: General: cooperative, healthy appearing and comfortable Resp: Auscultation: clear to auscultation bilaterally, no crackles, no rales, no rhonchi and no wheezes Cardio: Jugular venous distension: no JVD Rate: regular rate Rhythm: regular rhythm Heart sounds: no murmurs Peripheral pulses: dorsalis pedis present GI: GI Palp: Yes abdominal tenderness and Yes Soft to palpation Neuro: General: oriented to person, oriented to place and oriented to time Extrem: Right lower extremity: no edema Left lower extremity: no edema Objective Data Vital Signs Vital Signs: Vital Signs - 24 hr 11/05/21 10:50 11/05/21 10:52 11/05/21 11:46 Temperature 99.3 F Pulse Rate 106 H 91 Respiratory Rate 16 16 Blood Pressure 177/106 H 180/100 H Pulse Oximetry 98 97 96 11/05/21 13:54 11/05/21 14:00 11/05/21 16:00 Temperature 97.8 F Pulse Rate 94 94 101 H Respiratory Rate 16 22 H Blood Pressure 176/106 H 168/100 H Pulse Oximetry 98 97 11/05/21 18:00 11/05/21 18:18 11/05/21 20:00 Temperature 98.9 F 97.9 F Pulse Rate 115 H 102 H Respiratory Rate 17 Blood Pressure 162/90 H 116/73 Pulse Oximetry 94 11/05/21 22:00 11/06/21 00:00 11/06/21 02:00 Temperature 98.4 F Pulse Rate 85 95 78 Respiratory Rate 19 Blood Pressure 149/88 H Pulse Oximetry 96 11/06/21 04:00 11/06/21 06:00 11/06/21 07:25 Temperature 98.1 F Pulse Rate 90 86 87 Respiratory Rate 21 H Blood Pressure 146/85 H Pulse Oximetry 95 Intake/Output Intake/Output: Intake & Output 11/03/21 11/04/21 11/05/21 11/06/21 23:59 23:59 23:59 23:59 Intake Total 2450 750 Balance 2450 750 Meds/Results Medications: Active Medications Generic Name Dose Route Start Last Admin Trade Name Freq PRN Reason Stop Dose Admin Fluticasone Propionate 2 spray 11/06/21 09:00 Fluticasone Propionate 0.05% Na Spr 16 Gm Btl (*Bkc) NASAL DAILY LARY Hydralazine HCl 5 mg 11/05/21 23:33 Hydralazine Hcl 20 Mg/Ml Vial IV PUSH Q6H PRN SBP > 165 or DBP > 105 Piperacillin/Tazobactam/Dextrose 3.375 gm in 50 mls @ 100 mls/hr 11/05/21 15:00 11/06/21 03:30 Zosyn 3.375 Gm/D5w 50ml Pm IVPB Infused Q6H LARY Infusion Sodium Chloride 1,000 mls @ 75 mls/hr 11/05/21 10:00 11/05/21 20:20 Normal Saline Iv IV CONT 100 mls/hr .[id number] LARY Administration Ibuprofen 800 mg in 200 mls @ 400 mls/hr 11/05/21 18:10 11/06/21 05:55 Caldolor 800 Mg/200 Ml IVPB Infused Q6HR LARY Infusion Acetaminophen 1,000 mg in 100 mls @ 400 mls/hr 11/05/21 18:09 Ofirmev 1,000 Mg Ivpb IVPB 11/06/21 18:08 Q6H PRN Pain Rated 1-3 Morphine Sulfate 5 mg 11/05/21 18:14
[2021-11-06] MEDS: ACETAMINOPHEN 500 MG TABLET 1000 MG PO (09:05)
--- NOTE | 2021-11-06 09:47 | PC.NURSE ---
PATIENT EXIT UNIT FOR SURGERY, AT 0932, ALERT, ORIENTED, FAMILY AWARE, NO DISTRESS NOTED, IV INTACT, ON ROOM AIR.
--- NOTE | 2021-11-06 10:03 | WPDANESEPPF ---
Anes - Initial Pre Proc Eval Procedure: Operation Date: 11/06/21 11:00 Proposed Procedures p Laparoscopic Cholecystectomy - Cesar Mcrae MD Date/Time: 11/06/21 10:03 Surgeon: Johnie Krishna MD Pre Op Diagnosis: Acute cholecystitis/non ST elevation MO Patient Data Age: 51 Gender: F Height: 1.52 m Weight: 41.5 kg Last Vital Signs Temp 37.0 C 11/06/21 08:00 Pulse 89 11/06/21 09:46 Resp 18 11/06/21 08:00 BP 119/71 11/06/21 08:00 Pulse Ox 96 11/06/21 08:00 Allergies Allergy/AdvReac Type Severity Reaction Status Date / Time amoxicillin [From Augmentin] AdvReac Mild Vomiting Verified 11/05/21 12:19 clavulanic acid AdvReac Mild Vomiting Verified 10/24/21 16:44 [From Augmentin] clindamycin AdvReac Diarrhea Verified 11/05/21 06:59 Home Medications Medication Instructions Recorded Confirmed Type albuterol sulfate 2 puff INHALATION Q4-6H PRN 10/24/21 11/05/21 History fexofenadine 180 mg PO DAILY 10/24/21 11/05/21 History fluticasone propion-salmeterol 1 inh INHALATION DAILY 10/24/21 11/05/21 History [Advair Diskus] fluticasone propionate 2 spray INTRANASAL DAILY 10/24/21 11/05/21 History montelukast 10 mg PO DAILY 10/24/21 11/05/21 History pantoprazole 40 mg PO DAILY 10/24/21 11/05/21 History Laboratory Tests 11/05/21 11/05/21 11/05/21 10:24 10:24 13:01 WBC RBC Hgb Hct MCV MCH MCHC RDW Plt Count MPV Immature Gran % (Auto) Neut % (Auto) Lymph % (Auto) [place] % (Auto) Eos % (Auto) Baso % (Auto) Lymph # (Auto) [place] # (Auto) Eos # (Auto) Baso # (Auto) Abs Immat Gran (auto) Absolute Neuts (auto) Absolute Nucleated RBC Nucleated RBC % Sodium Potassium Chloride Carbon Dioxide Anion Gap BUN Creatinine Estim Creat Clear Calc Estimated GFR Glucose Lactic Acid 1.2 mmol/L mmol/L (0.7-2.1) Calcium Magnesium Total Bilirubin AST ALT Alkaline Phosphatase Troponin I 0.141 ng/mL H* ng/mL 0.123 ng/mL H* ng/mL (0.000-0.034) (0.000-0.034) Total Protein Albumin Blood Type Antibody Screen 11/06/21 11/06/21 11/06/21 04:00 04:00 07:51 WBC 14.4 K/mm3 H K/mm3 (4.5-10.0) RBC 4.90 M/mm3 M/mm3 (4.2-5.4) Hgb 13.7 g/dL g/dL (12.0-15.0) Hct 42.0 % % (37.0-47.0) MCV 85.7 fl fl (80-100) MCH 28.0 pg pg (26-34) MCHC 32.6 g/dl g/dl (32-36) RDW 15.9 % H % (11.5-14.5) Plt Count 274 k/mm3 k/mm3 (150-375) MPV 10.1 fl fl (7.4-10.4) Immature Gran % (Auto) 0.4 % % (0-0.5) Neut % (Auto) 79.9 % H % (45.5-73.1) Lymph % (Auto) 7.9 % L % (18.3-44.2) Sp[place]ding % (Auto) 6.4 % % (2.6-8.5) Eos % (Auto) 4.8 % H % (0-4.4) Baso % (Auto) 0.6 % % (0.2-1.2) Lymph # (Auto) 1.14 K/mm3 K/mm3 (0.9-3.2) Sp[place]ding # (Auto) 0.9 K/mm3 H K/mm3 (0.1-0.6) Eos # (Auto) 0.7 K/mm3 H K/mm3 (0-0.3) Baso # (Auto) 0.1 K/mm3 K/mm3 (0.0-0.1) Abs Immat Gran (auto) 0.06 K/mm3 H K/mm3 (0.00-0.031) Absolute Neuts (auto) 11.5 K/mm3 H K/mm3 (1.3-6.7) Absolute Nucleated RBC 0.0 K/mm3 K/mm3 (0.0-0.012) Nucleated RBC % 0.0 % % (0.0-0.2) Sodium 136 mmol/L L mmol/L (137-145) Potassium 3.6 mmol/L mmol/L (3.4-5.0) Chloride 102 mmol/L mmol/L (98-107) Carbon Dioxide 30 mmol/L mmol/L
[2021-11-06] MEDS: fentaNYL CITRATE INJ (*CRX) 100 MCG/2 ML VIAL 50 MCG IV PUSH (10:07)
--- NOTE | 2021-11-06 10:33 | WPDHPUPDATE1 ---
History and Physical Update Update Date/Time: 11/06/21 10:33 History and Physical has been reviewed, including an updated exam of the patient. There are NO changes in the patient's condition. Risks, benefits, and alternatives have been discussed and questions answered. Patient agrees to proceed with procedure.
--- NOTE | 2021-11-06 11:31 | PCFNICU ---
ICU Rounding Note: Pt current nutrition is NPO. Last recorded weight is 41.5 kg. Bowel Motility: No BM reported Labs Reviewed:Na 136 Meds Noted:Ibuprofen, Morphine Sulfate, Zofran, Zosyn Skin: WNL Additional Notes: Dietitian screen for BMI: 17.9 underweight. Patient currently NPO for surgery today. Following daily in ICU rounds.
[2021-11-06] MEDS: BUPIVACAINE/EPINEPHRINE 0.25% 10 ML VIAL 30 ML INFILTRATE (11:55)
[2021-11-06] MEDS: LACTATED RINGERS 1,000 ML 30 ML IV CONT ×2 (12:11)
--- NOTE | 2021-11-06 12:11 | W.PM.PROC2 ---
Procedure Note - Detailed Date of Procedure 11/06/21 Pre-op Diagnosis Cholelithiasis with acute cholecystitis, cystic duct obstruction Post-op Diagnosis Same (Hydrops of the gallbladder) Procedure Performed Laparoscopic cholecystectomy Surgeon Cesar Mcrae MD Belly Dancer Tiffany MELGAR Anesthesia General and Local (0.25% Marcaine with epinephrine) Indications Patient presented with severe epigastric abdominal pain and right upper quadrant pain associated with vomiting. She had tenderness in the right upper [place] [id number]. Ultrasound showed gallstones and acute cholecystitis. She is taken to surgery now for laparoscopic cholecystectomy. Findings Gallbladder was very distended, the wall was thickened with acute inflammation and edema. There were numerous adhesions to the gallbladder. There were stones in the gallbladder. There was no bile in the gallbladder, only mucus consistent with a hydrops of the gallbladder. There were no liver abnormalities or biliary ductal dilatation noted. Description of Procedure Patient was taken to surgery and induced into general anesthesia. The abdomen was prepped and draped. Trocars were placed in the usual fashion using 0.25% Marcaine with epinephrine and applied Medical optical trocars. 5 mm camera was used. The gallbladder was surrounded by omental adhesions. There was a lot of edema in the omentum and the gallbladder wall. These adhesions were taken down over the upper 2/3 of the gallbladder. I then used a laparoscopic aspirator and decompressed the gallbladder. The contents of the gallbladder were clear consistent with a hydrops. The gallbladder was then retracted anterosuperiorly. The remaining adhesions were taken down so that the infundibulum and triangle of Calot were able to be visualized. Traction was placed on the infundibulum and dissection was carried out in the triangle of Calot. The adhesions were bloody consistent with the acute inflammation. Cautery was used for hemostasis. Suction and irrigation were used. Continued dissection was carried out and eventually the cystic duct and cystic artery were dissected out very clearly. The gallbladder was dissected off the liver at its lower 3rd. Critical view was achieved. We then securely clipped and divided the cystic artery. The cystic duct was quite swollen and I placed a clip near the gallbladder on the cystic duct. I then divided the cystic duct just distal to the clip. A Vicryl endoloop was used to ligate the stump of the cystic duct. All looked good. We then retracted the gallbladder and continued the dissection of the gallbladder to free it from the liver. There was a lot of acute inflammation and gangrenous change in the attachments of the gallbladder to the liver. Cautery as well as blunt dissection was used. Eventually the gallbladder was freed completely from the liver. It was placed in an Endo-Catch bag and retrieved through the 10 11 epigastric trocar. This trocar site had to be dilated to accommodate the gallbladder with its multiple stones and thickened wall. I replaced the epigastric trocar and then we reviewed the right upper quadrant. Cautery was used on some raw areas of the liver and hemostasis was achieved. Repeated irrigation and suctioning of the right upper quadrant was carried out. The gallbladder fossa was made hemostatic. Any old blood in the right upper quadrant was suctioned away and removed. Eventually the irrigation was looking quite clear. It was suctioned away as well. All looked good. We evacuated CO2 and removed the trocar sleeves. The fascia at the epigastric trocar site was closed with an 0 Vicryl [id number] mattress suture. All skin wounds were closed with subcuticular 4-0 Monocryl skin suture. The wounds were dressed with Exofin surgical adhesive. The patient was awakened and taken to recovery in good condition. Sponge and needle counts were correct x2. Vikrama
[2021-11-06] MEDS: fentaNYL CITRATE INJ (*CRX) 100 MCG/2 ML VIAL 25 MCG IV PUSH ×3 (12:24→12:52)
--- NOTE | 2021-11-06 12:32 | ECG_ITS ---
Measurements Intervals Union Rate: 79 P: 68 IN: 138 QRS: 29 QRSD: 85 T: 38 QT: 400 QTc: 460 Interpretive Statements SINUS RHYTHM NONSPECIFIC T-WAVE ABNORMALITY BORDERLINE ECG COMPARED TO ECG 11/05/2021 08:44:41 PEAKED T WAVE ABNORMALITY RESOLVED Electronically Signed On 11-06-2021 14:24:06 CLINICAL RESOURCE MANAGER by Puma Escobar M.D.
--- NOTE | 2021-11-06 13:26 | PC.NURSE ---
Patient received from PACU (ICU) @ [id number].
[2021-11-06] MEDS: HYDROcodone/acetaminophen (*CRX) 5-325 MG TABLET 1 TAB PO ×2 (15:24→20:38)
[2021-11-06] MEDS: LACTATED RINGERS 1,000 ML 100 ML IV CONT (15:26)
--- NOTE | 2021-11-06 16:52 | PM.IMPN ---
Progress Note: A&P Assessment and Plan (1) Acute cholecystitis: Code(s): K81.0 - Acute cholecystitis Status: Deleted (2) Elevated troponin: Code(s): R77.8 - Other specified abnormalities of plasma proteins Status: Acute (3) Hypertension: Code(s): I10 - Essential (primary) hypertension Status: Acute (4) Hyperlipidemia: Code(s): E78.5 - Hyperlipidemia, unspecified Status: Acute (5) Tobacco abuse: Code(s): Z72.0 - Tobacco use Status: Deleted (6) Esophagitis: Code(s): K20.90 - Esophagitis, unspecified without bleeding Status: Acute (7) Polycythemia: Code(s): D75.1 - Secondary polycythemia Status: Acute (8) Esophageal diverticulum: Code(s): Q39.6 - Congenital diverticulum of esophagus Status: Chronic Additional Plan Abdominal pain nausea vomiting related to acute cholecystitis status post laparoscopic cholecystectomy 11/06/2021. Currently on IV Zosyn. IV analgesics and antiemetic Elevated troponin cardiology consulted. Serial troponins flat does not indicate acute coronary syndrome. Echo done 11/05/2021 Esophagitis with Esophageal diverticulum seen Dr. Del Rio in the past. Continue PPI. Needs to follow up with GI as outpatient basis Polycythemia mild Mild to moderate mitral valve regurgitation Grade 1 diastolic dysfunction Tobacco abuse hypertension Hyperlipidemia DVT prophylaxis Code status full code Subjective Date/time seen: 11/06/21 16:52 Interval history: Seen after the surgery. Feeling well except for having her abdomen sore. No nausea vomiting. Review of Systems Review of Systems: All systems reviewed & are unremarkable except as noted in HPI and below (HPI) Exam Narrative: General: Well-developed female in no acute distress HEENT: Wearing glasses. PERRL, EOMI. Sclerae anicteric. Tacky mucous membranes. Neck: Supple. No JVD. Respiratory: Lungs are clear to auscultation bilaterally. No respiratory distress Cardiovascular: Regular rate and rhythm with S1-S2. No murmur, rub, or gallop. Gastrointestinal: Abdomen is soft and nondistended with positive bowel sounds. Surgical incisions noted abdomen mildly tender appropriately Skin: Warm and dry. Extremities: No cyanosis, clubbing, or edema. Radial and pedal pulses intact. Neurological: Alert. Cranial nerves 2-12 are grossly intact. No gross focal deficits to casual conversation. Psychiatric: Pleasant and cooperative with normal mood and affect. Objective Data Vital Signs Vital Signs: Vital Signs - 24 hr 11/05/21 18:00 11/05/21 18:18 11/05/21 20:00 Temperature 98.9 F 97.9 F Pulse Rate 115 H 102 H Respiratory Rate 17 Blood Pressure 162/90 H 116/73 Pulse Oximetry 94 11/05/21 22:00 11/06/21 00:00 11/06/21 02:00 Temperature 98.4 F Pulse Rate 85 95 78 Respiratory Rate 19 Blood Pressure 149/88 H Pulse Oximetry 96 11/06/21 04:00 11/06/21 06:00 11/06/21 07:25 Temperature 98.1 F Pulse Rate 90 86 87 Respiratory Rate 21 H Blood Pressure 146/85 H Pulse Oximetry 95 11/06/21 08:00 11/06/21 09:36 11/06/21 09:46 Temperature 98.6 F 98.3 F Pulse Rate 97 95 89 Respiratory Rate 18 16 Blood Pressure 119/71 121/98 H Pulse Oximetry 96 97 11/06/21 12:11 11/06/21 12:25 11/06/21 12:40 Temperature 97.4 F L Pulse Rate 90 73 98 Respiratory Rate 16 16 18 Blood Pressure 134/79 154/85 H 155/83 H Pulse Oximetry 100 100 100 11/06/21 12:55 11/06/21 13:56 Temperature 97.2 F L Pulse Rate 98 91 Respiratory Rate 18 18 Blood Pressure 154/86 H 145/87 H Pulse Oximetry 94 95 Intake/Output Intake/Output: Intake & Output 11/03/21 11/04/21 11/05/21 11/06/21 23:59 23:59 23:59 23:59 Intake Total 2450 1122 Balance 2450 1122 Meds/Results Medications: Active Medications Generic Name Dose Route Start Last Admin Trade Name Pepeq PRN Reason Stop Dose Admin Acetaminophen 500 mg 11/06/21 13:03
[2021-11-06] MEDS: amLODIPine BESYLATE 5 MG TABLET PO (16:59)
[2021-11-07] VITALS (8 sets, daily range): BP systolic 146–177; BP diastolic 72–107; PULSE 81–100; RESP 16–18; TEMP 36.1–37.2; O2SAT 96–99
[2021-11-07] MEDS: HYDROcodone/acetaminophen (*CRX) 7.5-325 MG TABLET 1 TAB PO ×4 (00:38→21:05)
[2021-11-07 06:19] LABS: Hematocrit 35.2 % (37.0-47.0); Hemoglobin 11.6 g/dL (12.0-15.0); Mean Corpuscular Volume 84.8 fl (80-100); Mean Platelet Volume 10.7 fl (7.4-10.4); Platelet Count Result 252 k/mm3 (150-375); Red Blood Count 4.15 M/mm3 (4.2-5.4); Red Cell Distribution Width 15.8 % (11.5-14.5); White Blood Count 14.4 K/mm3 (4.5-10.0)
[2021-11-07 06:27] LABS: Alanine Aminotransferase 45 U/L (4-35); Albumin Level 3.3 g/dL (3.5-5.1); Alkaline Phosphatase 127 U/L (38-126); Anion Gap 6 mmol/L (8-16); Aspartate Amino Transferase 43 U/L (14-36); Bilirubin,Total 0.4 mg/dL (0.2-1.3); Blood Urea Nitrogen 5 mg/dL (7-17); Calcium 8.6 mg/dL (8.4-10.2); Carbon Dioxide 29 mmol/L (22-30); Chloride 102 mmol/L (98-107); Estimated CRCL calculation 68 ml/min; Estimated Glomerular Filt Rate > 60; Glucose 107 mg/dL (65-110); Magnesium 1.7 mg/dL (1.6-2.3); Potassium 3.2 mmol/L (3.4-5.0); Sodium 137 mmol/L (137-145)
--- NOTE | 2021-11-07 07:46 | PM.PNCARD ---
Progress Note: A&P Assessment and Plan (1) Elevated troponin: Code(s): R77.8 - Other specified abnormalities of plasma proteins Status: Deleted Assessment and Plan: Probably due to sepsis from cholecystitis. Mild and trending down which is not consistent with ACS event. Echo shows EF 65-70%, grade I diastolic dysfunction (E/e' 18), mild-mod MR. (2) Hyperlipidemia: Code(s): E78.5 - Hyperlipidemia, unspecified Status: Acute Assessment and Plan: Advise to maintain a low saturated fat diet. (3) Smoker: Code(s): F17.200 - Nicotine dependence, unspecified, uncomplicated Status: Chronic Assessment and Plan: Counseled regarding smoking cessation. (4) Acute cholecystitis: Code(s): K81.0 - Acute cholecystitis Status: Deleted Assessment and Plan: S/P cholecystectomy. (5) Preop cardiovascular exam: Code(s): Z01.810 - Encounter for preprocedural cardiovascular examination Status: Acute Assessment and Plan: May proceed to noncardiac surgery which is cholecystectomy without further cardiac workup at this time. Post op EKG unremarkable. (6) Hypertension: Code(s): I10 - Essential (primary) hypertension Status: Acute Assessment and Plan: Very high BP. Started on Amlodipine 10 mg daily and Losartan 100 mg daily. Monitor BP. Subjective Date/time seen: 11/07/21 07:46 Reports 5/10 pain in RUQ. No chest pain. Exam Const: General: cooperative, healthy appearing and comfortable Resp: Auscultation: clear to auscultation bilaterally, no crackles, no rales, no rhonchi and no wheezes Cardio: Jugular venous distension: no JVD Rate: regular rate Rhythm: regular rhythm Heart sounds: no murmurs Peripheral pulses: dorsalis pedis present GI: GI Palp: Yes abdominal tenderness and Yes Soft to palpation Neuro: General: oriented to person, oriented to place and oriented to time Extrem: Right lower extremity: no edema Left lower extremity: no edema Objective Data Vital Signs Vital Signs: Vital Signs - 24 hr 11/06/21 08:00 11/06/21 09:36 11/06/21 09:46 Temperature 98.6 F 98.3 F Pulse Rate 97 95 89 Respiratory Rate 18 16 Blood Pressure 119/71 121/98 H Pulse Oximetry 96 97 11/06/21 12:11 11/06/21 12:25 11/06/21 12:40 Temperature 97.4 F L Pulse Rate 90 73 98 Respiratory Rate 16 16 18 Blood Pressure 134/79 154/85 H 155/83 H Pulse Oximetry 100 100 100 11/06/21 12:55 11/06/21 13:56 11/06/21 20:00 Temperature 97.2 F L Pulse Rate 98 91 82 Respiratory Rate 18 18 18 Blood Pressure 154/86 H 145/87 H Pulse Oximetry 94 95 97 11/06/21 20:30 11/07/21 00:00 11/07/21 01:30 Temperature 97 F L 97.7 F 97.6 F Pulse Rate 82 90 88 Respiratory Rate 18 18 18 Blood Pressure 176/106 H 177/107 H 172/105 H Pulse Oximetry 97 99 96 11/07/21 04:00 Temperature 96.9 F L Pulse Rate 100 Respiratory Rate 18 Blood Pressure 167/92 H Pulse Oximetry 97 Intake/Output Intake/Output: Intake & Output 11/04/21 11/05/21 11/06/21 11/07/21 23:59 23:59 23:59 23:59 Intake Total 2450 2922 400 Balance 2450 2922 400 Meds/Results Medications: Active Medications Generic Name Dose Route Start Last Admin Trade Name Freq PRN Reason Stop Dose Admin Acetaminophen 500 mg 11/06/21 13:03 Acetaminophen 500 Mg Tablet PO Q6H PRN Mild Pain (1-3) or Fever Hydrocodone Bitart/Acetaminophen 1 tab 11/06/21 13:03 11/06/21 20:38 Hydrocodone/Acetaminophen (*Crx) 5-325 Mg Tablet PO 1 tab Q4H PRN Administration Pain Rated 4-6 Hydrocodone Bitart/Acetaminophen 1 tab 11/06/21 13:03 11/07/21 06:21 Hydrocodone/Acetaminophen (*Crx) 7.5-325 Mg Tablet PO 1 tab Q4H PRN Administration Pain Rated 7-10 Albuterol 2 puff 11/06/21 13:03 Albuterol Sulfate (*Sp) Aerosol 1 Puff INHALATION Q4-6H PRN Shortness Of Breath Amlodipine Besylate 10 mg 11/07/21 09:00 Amlodipine Besylate 5
[2021-11-07] MEDS: LOSARTAN POTASSIUM 100 MG TABLET PO (08:52)
[2021-11-07] MEDS: ENOXAPARIN 40 MG/0.4 ML SYRINGE SUB-Q (08:52)
[2021-11-07] MEDS: amLODIPine BESYLATE 5 MG TABLET 10 MG PO (08:52)
[2021-11-07] MEDS: LORATADINE 10 MG TABLET PO (08:53)
[2021-11-07] MEDS: MONTELUKAST SODIUM 10 MG TABLET PO (08:53)
[2021-11-07] MEDS: PANTOPRAZOLE 40 MG TABLET PO (08:53)
[2021-11-07] MEDS: POTASSIUM CHLORIDE INJ 40 MEQ in SODIUM CHLORIDE 0.9% IV 500 ML 130 MEQ IVPB (09:22)
--- NOTE | 2021-11-07 09:31 | WPDANESPN ---
Anes - Prog Note Post-Op Date/Time: 11/07/21 09:31 Cardiovascular status: normal Respiratory status: normal Airway patency: baseline Mental status: baseline Post-Op hydration status: normal Vital Signs: Last Vital Signs Temp 36.1 C L 11/07/21 04:00 Pulse 100 11/07/21 04:00 Resp 18 11/07/21 04:00 BP 167/92 H 11/07/21 04:00 Pulse Ox 97 11/07/21 04:00 Pain Score (VAS): 0 I/O: Intake & Output 11/06/21 11/07/21 11/07/21 23:59 07:59 15:59 Intake Total 800 400 240 Balance 800 400 240 Laboratory Tests 11/07/21 05:34 11/07/21 05:34 11/06/21 11/07/21 11/07/21 07:51 05:34 05:34 WBC 14.4 H RBC 4.15 L Hgb 11.6 L Hct 35.2 L MCV 84.8 MCH 28.0 MCHC 33.0 RDW 15.8 H Plt Count 252 MPV 10.7 H Sodium 137 Potassium 3.2 L Chloride 102 Carbon Dioxide 29 Anion Gap 6 L BUN 5 L Creatinine 0.60 L Estim Creat Clear Calc 68 Estimated GFR > 60 Glucose 107 Calcium 8.6 Magnesium 1.7 Total Bilirubin 0.4 AST 43 H ALT 45 H Alkaline Phosphatase 127 H Total Protein 6.0 L Albumin 3.3 L Blood Type O Positive Antibody Screen Negative Microbiology 11/05/21 10:24 Blood Blood Culture - Preliminary Post-procedural complaints: none Patient Feedback: Patient satisfied with anesthetic care.
--- NOTE | 2021-11-07 12:18 | PM.PNGS ---
Progress Note: A&P Assessment and Plan (1) Cholelithiasis and acute cholecystitis with obstruction: Code(s): K80.01 - Calculus of gallbladder with acute cholecystitis with obstruction Status: Acute Assessment and Plan: Can be discharged from surgical perspective. Patient tells me that cardiology wishes to continue to monitor another day which is fine. And courage patient to ambulate and started on solid food. Take oral analgesics as needed. Hopefully home tomorrow. Probably home on oral antibiotics. (2) Esophageal diverticulum: Code(s): Q39.6 - Congenital diverticulum of esophagus Status: Chronic Assessment and Plan: Will address as outpatient. Will need upper GI and may be consultation with Gastroenterology for EGD. (3) Smoker: Code(s): F17.200 - Nicotine dependence, unspecified, uncomplicated Status: Chronic Assessment and Plan: Advised to quit. Subjective Subjective Date/Time Seen: 11/07/21 12:18 Post Op day: 1 Patient reports: pain is less, tolerating liquids well, no flatus, no bowel movement and afebrile Interval history: Pain controlled with oral analgesics. Tolerated liquids well. Has been started on a heart healthy diet. Having some right upper quadrant pain but relieved with oral analgesics to the greater extent. Exam Const: General: comfortable and no acute distress; No confusion Orientation/consciousness: patient oriented x3 and No confusion GI: Inspection: incision (Incisions dry and healing well) and scaphoid GI Palp: Yes Soft to palpation, Yes Tenderness to palpation present (GI) (Especially right upper quadrant), No Guarding due to palpation present (GI) and No Rebound tenderness present Auscultation: normal bowel sounds Neuro: General: patient oriented x3, no focal motor deficits and No confusion Extrem: General: no calf tenderness and no edema Psych: Affect: normal affect Insight: Good insight present (Psych) Judgement: Good judgement present (Psych) Objective Data Vital Signs Vital Signs: Vital Signs - 24 hr 11/06/21 12:25 11/06/21 12:40 11/06/21 12:55 Temperature Pulse Rate 73 98 98 Respiratory Rate 16 18 18 Blood Pressure 154/85 H 155/83 H 154/86 H Pulse Oximetry 100 100 94 11/06/21 13:56 11/06/21 20:00 11/06/21 20:30 Temperature 36.2 C L 36.1 C L Pulse Rate 91 82 82 Respiratory Rate 18 18 18 Blood Pressure 145/87 H 176/106 H Pulse Oximetry 95 97 97 11/07/21 00:00 11/07/21 01:30 11/07/21 04:00 Temperature 36.5 C 36.4 C 36.1 C L Pulse Rate 90 88 100 Respiratory Rate 18 18 18 Blood Pressure 177/107 H 172/105 H 167/92 H Pulse Oximetry 99 96 97 Intake/Output Intake/Output: Intake & Output 11/04/21 11/05/21 11/06/21 11/07/21 23:59 23:59 23:59 23:59 Intake Total 2450 2922 690 Balance 2450 2922 690 Meds/Results Medications: Active Medications Generic Name Dose Route Start Last Admin Trade Name Freq PRN Reason Stop Dose Admin Acetaminophen 500 mg 11/06/21 13:03 Acetaminophen 500 Mg Tablet PO Q6H PRN Mild Pain (1-3) or Fever Hydrocodone Bitart/Acetaminophen 1 tab 11/06/21 13:03 11/06/21 20:38 Hydrocodone/Acetaminophen (*Crx) 5-325 Mg Tablet PO 1 tab Q4H PRN Administration Pain Rated 4-6 Hydrocodone Bitart/Acetaminophen 1 tab 11/06/21 13:03 11/07/21 11:12 Hydrocodone/Acetaminophen (*Crx) 7.5-325 Mg Tablet PO 1 tab Q4H PRN Administration Pain Rated 7-10 Albuterol 2 puff 11/06/21 13:03 Albuterol Sulfate (*Sp) Aerosol 1 Puff INHALATION Q4-6H PRN Shortness Of Breath Amlodipine Besylate 10 mg 11/07/21 09:00 11/07/21 08:52 Amlodipine Besylate 5 Mg Tablet PO 10 mg QAM LARY Administration Enoxaparin Sodium 40 mg 11/07/21 09:00 11/07/21 08:52 Enoxaparin 40 Mg/0.4 Ml Syringe SUB-Q 40 mg DAILY LARY Administration Piperacillin/Tazobactam/Dextrose 3.375 gm in 50 mls @ 100 mls/hr 11/05/21 15:00 11/07/21 09:45 Zosyn
--- NOTE | 2021-11-07 13:33 | PM.IMPN ---
Progress Note: A&P Assessment and Plan (1) Acute cholecystitis: Code(s): K81.0 - Acute cholecystitis Status: Deleted (2) Elevated troponin: Code(s): R77.8 - Other specified abnormalities of plasma proteins Status: Acute (3) Hypertension: Code(s): I10 - Essential (primary) hypertension Status: Acute (4) Hyperlipidemia: Code(s): E78.5 - Hyperlipidemia, unspecified Status: Acute (5) Tobacco abuse: Code(s): Z72.0 - Tobacco use Status: Deleted (6) Esophagitis: Code(s): K20.90 - Esophagitis, unspecified without bleeding Status: Acute (7) Polycythemia: Code(s): D75.1 - Secondary polycythemia Status: Acute (8) Esophageal diverticulum: Code(s): Q39.6 - Congenital diverticulum of esophagus Status: Chronic Additional Plan Abdominal pain nausea vomiting related to acute cholecystitis status post laparoscopic cholecystectomy 11/06/2021. Currently on IV Zosyn. IV analgesics and antiemetic. P.o. Augmentin at discharge Elevated troponin cardiology consulted. Serial troponins flat does not indicate acute coronary syndrome. Echo done 11/05/2021 Esophagitis with Esophageal diverticulum seen Dr. Del Rio in the past. Continue PPI. Needs to follow up with GI as outpatient basis for EGD Polycythemia mild Mild to moderate mitral valve regurgitation Grade 1 diastolic dysfunction Tobacco abuse hypertensionHome medication was continued adjusted this morning for not optimal blood pressure Hyperlipidemia DVT prophylaxis Lovenox Code status full code Subjective Date/time seen: 11/07/21 13:33 Interval history: no overnight events. Still complains of soreness in her right upper quadrant. Able to tolerate diet no nausea vomiting. Blood pressure elevated this morning adjustment of the blood pressure medication was done by the veterinary assistant this morning Review of Systems Review of Systems: All systems reviewed & are unremarkable except as noted in HPI and below (HPI) Exam Narrative: General: Well-developed female in no acute distress HEENT: Wearing glasses. PERRL, EOMI. Sclerae anicteric. Tacky mucous membranes. Neck: Supple. No JVD. Respiratory: Lungs are clear to auscultation bilaterally. No respiratory distress Cardiovascular: Regular rate and rhythm with S1-S2. No murmur, rub, or gallop. Gastrointestinal: Abdomen is soft and nondistended with positive bowel sounds. Surgical incisions noted abdomen mildly tender appropriately Skin: Warm and dry. Extremities: No cyanosis, clubbing, or edema. Radial and pedal pulses intact. Neurological: Alert. Cranial nerves 2-12 are grossly intact. No gross focal deficits to casual conversation. Psychiatric: Pleasant and cooperative with normal mood and affect. Objective Data Vital Signs Vital Signs: Vital Signs - 24 hr 11/06/21 13:56 11/06/21 20:00 11/06/21 20:30 Temperature 97.2 F L 97 F L Pulse Rate 91 82 82 Respiratory Rate 18 18 18 Blood Pressure 145/87 H 176/106 H Pulse Oximetry 95 97 97 11/07/21 00:00 11/07/21 01:30 11/07/21 04:00 Temperature 97.7 F 97.6 F 96.9 F L Pulse Rate 90 88 100 Respiratory Rate 18 18 18 Blood Pressure 177/107 H 172/105 H 167/92 H Pulse Oximetry 99 96 97 Intake/Output Intake/Output: Intake & Output 11/04/21 11/05/21 11/06/21 11/07/21 23:59 23:59 23:59 23:59 Intake Total 2450 2922 930 Balance 2450 2922 930 Meds/Results Medications: Active Medications Generic Name Dose Route Start Last Admin Trade Name Freq PRN Reason Stop Dose Admin Acetaminophen 500 mg 11/06/21 13:03 Acetaminophen 500 Mg Tablet PO Q6H PRN Mild Pain (1-3) or Fever Hydrocodone Bitart/Acetaminophen 1 tab 11/06/21 13:03 11/06/21 20:38 Hydrocodone/Acetaminophen (*Crx) 5-325 Mg Tablet PO 1 tab Q4H PRN Administration Pain Rated 4-6 Hydrocodone Bitart/Acetaminophen 1 tab 11/06/21 13:03 11/07/21 11:12 Hydrocodone/Aceta
[2021-11-07] MEDS: SIMETHICONE 80 MG TAB.CHEW PO ×2 (15:20→21:05)
[2021-11-07] MEDS: ACETAMINOPHEN 500 MG TABLET PO (15:21)
[2021-11-07] MEDS: carvediloL 6.25 MG TABLET PO (20:26)
[2021-11-08 05:49] VITALS: BP 140/78; PULSE 77; RESP 16; TEMP 36.2; O2SAT 95
[2021-11-08 06:26] LABS: Hematocrit 34.4 % (37.0-47.0); Hemoglobin 11.3 g/dL (12.0-15.0); Mean Corpuscular HGB Conc 32.8 g/dl (32-36); Mean Corpuscular Hemoglobin 27.9 pg (26-34); Mean Corpuscular Volume 84.9 fl (80-100); Mean Platelet Volume 10.5 fl (7.4-10.4); Platelet Count Result 270 k/mm3 (150-375); Red Blood Count 4.05 M/mm3 (4.2-5.4); Red Cell Distribution Width 15.8 % (11.5-14.5); White Blood Count 9.5 K/mm3 (4.5-10.0)
[2021-11-08 06:34] LABS: Anion Gap 3 mmol/L (8-16); Blood Urea Nitrogen 5 mg/dL (7-17); Calcium 8.6 mg/dL (8.4-10.2); Carbon Dioxide 30 mmol/L (22-30); Chloride 102 mmol/L (98-107); Estimated CRCL calculation 68 ml/min; Estimated Glomerular Filt Rate > 60; Glucose 98 mg/dL (65-110); Potassium 3.4 mmol/L (3.4-5.0); Sodium 135 mmol/L (137-145)
[2021-11-08 06:36] LABS: Alanine Aminotransferase 34 U/L (4-35); Albumin Level 3.3 g/dL (3.5-5.1); Alkaline Phosphatase 120 U/L (38-126); Anion Gap 1 mmol/L (8-16); Aspartate Amino Transferase 26 U/L (14-36); Bilirubin,Total 0.6 mg/dL (0.2-1.3); Blood Urea Nitrogen 5 mg/dL (7-17); Calcium 8.6 mg/dL (8.4-10.2); Carbon Dioxide 30 mmol/L (22-30); Chloride 102 mmol/L (98-107); Estimated CRCL calculation 68 ml/min; Estimated Glomerular Filt Rate > 60; Glucose 98 mg/dL (65-110); Potassium 3.5 mmol/L (3.4-5.0); Sodium 133 mmol/L (137-145)
--- NOTE | 2021-11-08 06:59 | PM.PNCARD ---
Progress Note: A&P Assessment and Plan (1) Elevated troponin: Code(s): R77.8 - Other specified abnormalities of plasma proteins Status: Deleted Assessment and Plan: Probably due to sepsis from cholecystitis. Mild and trending down which is not consistent with ACS event. Echo shows EF 65-70%, grade I diastolic dysfunction (E/e' 18), mild-mod MR. (2) Hyperlipidemia: Code(s): E78.5 - Hyperlipidemia, unspecified Status: Acute Assessment and Plan: Advise to maintain a low saturated fat diet. (3) Smoker: Code(s): F17.200 - Nicotine dependence, unspecified, uncomplicated Status: Chronic Assessment and Plan: Counseled regarding smoking cessation. (4) Acute cholecystitis: Code(s): K81.0 - Acute cholecystitis Status: Deleted Assessment and Plan: S/P cholecystectomy. (5) Preop cardiovascular exam: Code(s): Z01.810 - Encounter for preprocedural cardiovascular examination Status: Acute Assessment and Plan: May proceed to noncardiac surgery which is cholecystectomy without further cardiac workup at this time. Post op EKG unremarkable. (6) Hypertension: Code(s): I10 - Essential (primary) hypertension Status: Acute Assessment and Plan: Stable. On Amlodipine 10 mg daily and Losartan 100 mg daily, and started on Coreg 6.25 mg BID. December d/c home from cardiology standpoint and f/u with me in 1-2 weeks. Subjective Date/time seen: 11/08/21 06:59 Denies chest pain or sob. Abdominal pain better. Exam Const: General: cooperative, healthy appearing and comfortable Resp: Auscultation: clear to auscultation bilaterally, no crackles, no rales, no rhonchi and no wheezes Cardio: Jugular venous distension: no JVD Rate: regular rate Rhythm: regular rhythm Heart sounds: no murmurs Peripheral pulses: dorsalis pedis present GI: GI Palp: Yes abdominal tenderness and Yes Soft to palpation Neuro: General: oriented to person, oriented to place and oriented to time Extrem: Right lower extremity: no edema Left lower extremity: no edema Objective Data Vital Signs Vital Signs: Vital Signs - 24 hr 11/07/21 13:55 11/07/21 16:11 11/07/21 20:00 Temperature 97.6 F 99 F Pulse Rate 98 81 Respiratory Rate 18 18 Blood Pressure 163/97 H 150/72 H 146/84 H Pulse Oximetry 99 11/07/21 20:26 11/07/21 22:00 11/08/21 05:49 Temperature 97.5 F L 97.1 F L Pulse Rate 81 95 77 Respiratory Rate 16 16 Blood Pressure 146/84 H 140/78 Pulse Oximetry 99 95 Intake/Output Intake/Output: Intake & Output 11/05/21 11/06/21 11/07/21 11/08/21 23:59 23:59 23:59 23:59 Intake Total 2450 2922 1266 750 Balance 2450 2922 1266 750 Meds/Results Medications: Active Medications Generic Name Dose Route Start Last Admin Trade Name Freq PRN Reason Stop Dose Admin Acetaminophen 500 mg 11/06/21 13:03 11/07/21 15:21 Acetaminophen 500 Mg Tablet PO 500 mg Q6H PRN Administration Mild Pain (1-3) or Fever Hydrocodone Bitart/Acetaminophen 1 tab 11/06/21 13:03 11/06/21 20:38 Hydrocodone/Acetaminophen (*Crx) 5-325 Mg Tablet PO 1 tab Q4H PRN Administration Pain Rated 4-6 Hydrocodone Bitart/Acetaminophen 1 tab 11/06/21 13:03 11/07/21 21:05 Hydrocodone/Acetaminophen (*Crx) 7.5-325 Mg Tablet PO 1 tab Q4H PRN Administration Pain Rated 7-10 Albuterol 2 puff 11/06/21 13:03 Albuterol Sulfate (*Sp) Aerosol 1 Puff INHALATION Q4-6H PRN Shortness Of Breath Amlodipine Besylate 10 mg 11/07/21 09:00 11/07/21 08:52 Amlodipine Besylate 5 Mg Tablet PO 10 mg QAM LARY Administration Carvedilol 6.25 mg 11/07/21 21:00 11/07/21 20:26 Carvedilol 6.25 Mg Tablet PO 6.25 mg Q12HR LARY Administration Enoxaparin Sodium 40 mg 11/07/21 09:00 11/07/21 08:52 Enoxaparin 40 Mg/0.4 Ml Syringe SUB-Q 40 mg DAILY LARY Administration Piperacillin/Tazobactam/Dextrose 3.375 gm in 50 ml
[2021-11-08 08:00] VITALS: PULSE 77; RESP 16; O2SAT 95
[2021-11-08] MEDS: LORATADINE 10 MG TABLET PO (08:21)
[2021-11-08] MEDS: LOSARTAN POTASSIUM 100 MG TABLET PO (08:21)
[2021-11-08] MEDS: MONTELUKAST SODIUM 10 MG TABLET PO (08:21)
[2021-11-08] MEDS: amLODIPine BESYLATE 5 MG TABLET 10 MG PO (08:21)
[2021-11-08] MEDS: PANTOPRAZOLE 40 MG TABLET PO (08:21)
[2021-11-08] MEDS: carvediloL 6.25 MG TABLET PO (08:22)
[2021-11-08] MEDS: ENOXAPARIN 40 MG/0.4 ML SYRINGE SUB-Q (08:22)
--- NOTE | 2021-11-08 10:29 | PM.PNGS ---
Progress Note: A&P Assessment and Plan (1) Cholelithiasis and acute cholecystitis with obstruction: Code(s): K80.01 - Calculus of gallbladder with acute cholecystitis with obstruction Status: Acute Assessment and Plan: Pathology shows acute cholecystitis with evidence of gangrenous change in the gallbladder wall. Patient doing well. Okay to discharge from my perspective. Should avoid fried or greasy foods. Will continue her on ciprofloxacin for 5 more days. She will see me again in 2 weeks. Prescriptions written for analgesics postoperatively. (2) Esophageal diverticulum: Code(s): Q39.6 - Congenital diverticulum of esophagus Status: Chronic Assessment and Plan: Will be addressed as outpatient. (3) Smoker: Code(s): F17.200 - Nicotine dependence, unspecified, uncomplicated Status: Chronic Assessment and Plan: Advised to quit. Subjective Subjective Date/Time Seen: 11/08/21 10:29 Post Op day: 2 Patient reports: feels better, pain is less, tolerating a regular diet and afebrile Exam Const: General: comfortable and no acute distress; No confusion Orientation/consciousness: patient oriented x3 and No confusion GI: Inspection: non-distended and incision (Dry and healing well) GI Palp: Yes Soft to palpation, Yes Tenderness to palpation present (GI) (Mild appropriate tenderness), No Guarding due to palpation present (GI) and No Rebound tenderness present Auscultation: normal bowel sounds Neuro: General: patient oriented x3, no focal motor deficits and No confusion Extrem: General: no calf tenderness and no edema Psych: Affect: normal affect Insight: Good insight present (Psych) Judgement: Good judgement present (Psych) Objective Data Vital Signs Vital Signs: Vital Signs - 24 hr 11/07/21 13:55 11/07/21 16:11 11/07/21 20:00 Temperature 36.4 C 37.2 C Pulse Rate 98 81 Respiratory Rate 18 18 Blood Pressure 163/97 H 150/72 H 146/84 H Pulse Oximetry 99 11/07/21 20:26 11/07/21 22:00 11/08/21 05:49 Temperature 36.4 C L 36.2 C L Pulse Rate 81 95 77 Respiratory Rate 16 16 Blood Pressure 146/84 H 140/78 Pulse Oximetry 99 95 Intake/Output Intake/Output: Intake & Output 11/05/21 11/06/21 11/07/21 03/12/22 23:59 23:59 23:59 23:59 Intake Total 2450 2922 1266 920 Balance 2450 2922 1266 920 Meds/Results Medications: Active Medications Generic Name Dose Route Start Last Admin Trade Name Freq PRN Reason Stop Dose Admin Acetaminophen 500 mg 11/06/21 13:03 11/07/21 15:21 Acetaminophen 500 Mg Tablet PO 500 mg Q6H PRN Administration Mild Pain (1-3) or Fever Hydrocodone Bitart/Acetaminophen 1 tab 11/06/21 13:03 11/06/21 20:38 Hydrocodone/Acetaminophen (*Crx) 5-325 Mg Tablet PO 1 tab Q4H PRN Administration Pain Rated 4-6 Hydrocodone Bitart/Acetaminophen 1 tab 11/06/21 13:03 11/07/21 21:05 Hydrocodone/Acetaminophen (*Crx) 7.5-325 Mg Tablet PO 1 tab Q4H PRN Administration Pain Rated 7-10 Albuterol 2 puff 11/06/21 13:03 Albuterol Sulfate (*Sp) Aerosol 1 Puff INHALATION Q4-6H PRN Shortness Of Breath Amlodipine Besylate 10 mg 11/07/21 09:00 11/08/21 08:21 Amlodipine Besylate 5 Mg Tablet PO 10 mg QAM LARY Administration Carvedilol 6.25 mg 11/07/21 21:00 11/08/21 08:22 Carvedilol 6.25 Mg Tablet PO 6.25 mg Q12HR LARY Administration Enoxaparin Sodium 40 mg 11/07/21 09:00 11/08/21 08:22 Enoxaparin 40 Mg/0.4 Ml Syringe SUB-Q 40 mg DAILY LARY Administration Piperacillin/Tazobactam/Dextrose 3.375 gm in 50 mls @ 100 mls/hr 11/05/21 15:00 11/08/21 08:22 Zosyn 3.375 Gm/D5w 50ml Pm IVPB 50 mls/hr Q6H LARY Administration Loratadine 10 mg 11/07/21 09:00 11/08/21 08:21 Loratadine 10 Mg Tablet PO 12/07/21 08:59 10 mg DAILY LARY Administration Losartan Potassium 100 mg 11/07/21 09:00 11/08/21 08:21 Losartan Potassium 100 Mg Tablet PO 100
--- NOTE | 2021-11-08 11:35 | PM.DS ---
DS: Admitting Diagnosis Discharge Date 11/08/2021 Admitting Diagnosis Abdominal pain DS: Discharge Diagnosis Discharge Diagnosis (1) Acute cholecystitis: Code(s): K81.0 - Acute cholecystitis Status: Deleted (2) Elevated troponin: Code(s): R77.8 - Other specified abnormalities of plasma proteins Status: Acute (3) Hypertension: Code(s): I10 - Essential (primary) hypertension Status: Acute (4) Hyperlipidemia: Code(s): E78.5 - Hyperlipidemia, unspecified Status: Acute (5) Tobacco abuse: Code(s): Z72.0 - Tobacco use Status: Deleted (6) Esophagitis: Code(s): K20.90 - Esophagitis, unspecified without bleeding Status: Acute (7) Polycythemia: Code(s): D75.1 - Secondary polycythemia Status: Acute (8) Esophageal diverticulum: Code(s): Q39.6 - Congenital diverticulum of esophagus Status: Chronic DS: Summary Hospital Course Reason for hospitalization: HPI: This is a 51-year-old female smoker with hypertension, hyperlipidemia, asthma, irritable bowel syndrome with constipation, and GERD who presented to the emergency department for evaluation of epigastric pain. Wednesday morning she had an appointment with an orthopedic regarding right knee pain and thereafter she had a large breakfast including eggs, silva, hash browns, and toast. Shortly after eating she developed abdominal bloating and discomfort in the epigastric region that became more intense as the day progressed. Initially she attributed her symptoms to IBS and she took some ibuprofen and Gas-X without benefit. That evening she developed nausea and vomiting and she has not been able to eat or drink anything since that time. The pain has been constant since Wednesday evening and has now settled more in the right upper quadrant. She has a difficult time describing the pain but reports that is severe and really unrelenting though it seems to come and go in waves of intensity. It does radiate somewhat through to the back. On arrival to the emergency department she was found to have elevation of her troponins in addition to findings consistent with acute cholecystitis. She has no known history of gallbladder disease or coronary artery disease. She had seen Dr. Malik a couple of years ago and he ordered an echocardiogram and exercise stress test but she never had that done and she has not had any exertional chest pain or shortness of breath since that time. In fact she is quite active, working as a [employer]. No orthopnea, PND, edema, syncope, or near syncope. To her knowledge she has not had a fever. She denies hematemesis, melena, and hematochezia. Hospital Course: # Abdominal pain nausea vomiting related to acute cholecystitis status post laparoscopic cholecystectomy 11/06/2021. Patient was treated with IV Zosyn. IV analgesics and antiemetic. Switch to p.o. ciprofloxacin 5 more days at discharge per General surgery recommendation. # Elevated troponin cardiology consulted. Serial troponins flat does not indicate acute coronary syndrome. Echo done 11/05/2021 # Esophagitis with Esophageal diverticulum seen Dr. Del Rio in the past. Continue PPI. Needs to follow up with GI as outpatient basis for EGD. Placed on PPI which she will continue # Polycythemia mild likely due to hemoconcentration # Mild to moderate mitral valve regurgitation # Grade 1 diastolic dysfunction # Tobacco abuse # hypertensionHome medication was continued medication adjusted. Amlodipine 10 mg losartan 100 mg and Coreg 6.25 twice daily. She will follow-up with cardiology in 1-2 weeks # Hyperlipidemia # DVT prophylaxis Lovenox # Code status full code Status at Discharge Overall status at discharge: patient is progressing back to baseline Time Spent with Patient Time attestation: Total time spent providing and/or coordinating discharge services: 35 minutes Exam Narrative: General: Well-developed female in no acute distress JOSELYN
== END 2021-11-08 11:50 | disposition home or self-care (01) | DRG 418 ==
LOC: ANHED 07:48 → ANHICU 10:45 → ANH3MEDSUR 11-06 13:17
PROVIDERS: Surgery; Admitting Provider Hospitalist; Emergency Provider Emergency Medicine; Visit Provider Internal Medicine
PROC: 0FT44ZZ Resection of Gallbladder, Percutaneous Endoscopic Approach (ICD-10-PCS; CPT 47562; principal; 2021-11-06 11:00)
DX: K80.01 Calculus of gallbladder with acute cholecystitis with obstruction (principal); K82.1 Hydrops of gallbladder; Q39.6 Congenital diverticulum of esophagus; J45.909 Unspecified asthma, uncomplicated; E78.5 Hyperlipidemia, unspecified; K58.1 Irritable bowel syndrome with constipation; F17.210 Nicotine dependence, cigarettes, uncomplicated; R77.8 Other specified abnormalities of plasma proteins; I10 Essential (primary) hypertension; K21.00 Gastro-esophageal reflux disease with esophagitis, without bleeding; D75.1 Secondary polycythemia; E86.0 Dehydration; R09.02 Hypoxemia; I34.0 Nonrheumatic mitral (valve) insufficiency; K82.8 Other specified diseases of gallbladder
CPT/HCPCS: 36415; 71046; 71275; 74177; 76705; 80048; 80053; 83605; 83690; 83735; 84484; 85025; 85027; 85610; 85730; 86850; 86900; 86901; 87040; 88304; 93005; 93306; 94640; 96361; 96365; 96375; 96376; 99285; A9270; C1713; J1100; J1170; J1650; J1741; J2250; J2270; J2405; J2543; J2704; J2710; J3010; J3480; J7030; J7040; J7120; Q9967

== ENCOUNTER 2021-12-26 01:28 | Day surgery (SDC) | payer OTHER, SELFPAY ==
[2021-12-22 13:44] VITALS: BMI 21.3
[2021-12-26 10:51] VITALS: BP 102/76; PULSE 98; RESP 18; TEMP 36.8; O2SAT 100
[2021-12-26] MEDS: LACTATED RINGERS 1,000 ML 150 ML IV CONT (10:55)
--- NOTE | 2021-12-26 10:56 | WPDANESEPPF ---
Anes - Initial Pre Proc Eval Procedure: Operation Date: 12/26/21 13:30 Proposed Procedures p Esophagogastroduodenoscopy - Dennis Avitia MD Date/Time: 12/26/21 10:56 Surgeon: Dennis Avitia MD Pre Op Diagnosis: dysphagia Patient Data Age: 51 Gender: F Height: 1.52 m Weight: 47.6 kg Last Vital Signs Temp 36.8 C 12/26/21 10:51 Pulse 98 12/26/21 10:51 Resp 18 12/26/21 10:51 BP 102/76 12/26/21 10:51 Pulse Ox 100 12/26/21 10:51 Allergies Allergy/AdvReac Type Severity Reaction Status Date / Time amoxicillin [From Augmentin] AdvReac Mild Vomiting Verified 12/26/21 10:48 clavulanic acid AdvReac Mild Vomiting Verified 12/26/21 10:48 [From Augmentin] clindamycin AdvReac Diarrhea Verified 12/26/21 10:48 Home Medications Medication Instructions Recorded Confirmed Type albuterol sulfate 2 puff INHALATION Q4-6H PRN 10/24/21 12/26/21 History fexofenadine 180 mg PO HS 10/24/21 12/26/21 History fluticasone propion-salmeterol 1 inh INHALATION DAILY 10/24/21 12/26/21 History [Advair Diskus] fluticasone propionate 2 spray INTRANASAL DAILY 10/24/21 12/26/21 History pantoprazole 40 mg PO HS 10/24/21 12/26/21 History linaclotide 72 mcg capsule 72 mcg PO .prn PRN cap 12/18/21 12/26/21 History losartan 100 mg tablet 50 mg PO HS tablet 12/18/21 12/26/21 History carvedilol [Coreg] 6.25 mg PO HS 12/22/21 12/26/21 History Patient hx anesthesia problems: none Family hx anesthesia problems: none Results Review: All pre-operative results and documents have been reviewed as part of the pre-operative evaluation. COUNTS INCLUDE 234 BEDS AT THE [facility] Past Medical History Medical History Abnormal CT scan, esophagus Anorexia Antibiotic-associated diarrhea Asthma Gastroesophageal reflux disease Hiatal hernia Hyperlipidemia Hypertension Irritable bowel syndrome with constipation Nausea & vomiting Rectocele Weight loss Surgical History Surgical History History of 3 sections History of colonoscopy with polypectomy History of hysterectomy History of laparoscopy Previous diagnostic laparoscopy in 2003 at [facility] with findings of pelvic adhesions, patient reports two additional surgeries for adhesiolysis at other facilities. Hx laparoscopic cholecystectomy 11/06/21 Family History Family History Father Family history of hypercholesterolemia Hypertension Coronary bypass graft mechanical complication Mother Family history of hypercholesterolemia Rheumatoid arthritis Social History Social History Social History: Surrogate decision maker: Dorian Sharma, spouse. Code status: Full code. Smoking packs per day: 1 Smoking cigarettes per day: 20.0 Years smoked: 30 Smoking pack-years: 30.00 Smoking status: Current every day smoker Tobacco type: cigarettes Second hand tobacco smoke exposure: Yes Additional smoking assessment comments: PAST 2 YEARS TRYING TO QUIT AND DOWN NOW TO 5-7 CIGS, A DAY AND LESS NICOTI Alcohol intake: former Drinks per week: 0 Alcohol use details: 1 to 2 drinks per year. Substance use: never Substance use type: does not use Living arrangements: with family Additional living arrangements comments: The patient lives in [place] with her . They have 3 children. Additional occupation/education comments: [employer] care concerns: No Anes - Eval Final PreProcedure Day of Procedure 12/26/21 10:56 Patient weight: normal Heart: regular rate and rhythm Lungs: clear to auscultation Airway: Mallampati scale class II Neurological: alert and oriented Last oral intake: >/= 8 hours ASA classification: III Emergent: no Anesthetic plan: proceed Anesthesia type and monitoring: general GIVS and standard monitorin
--- NOTE | 2021-12-26 10:59 | WPDHPUPDATE1 ---
History and Physical Update Update Date/Time: 12/26/21 10:59 History and Physical has been reviewed, including an updated exam of the patient. There are NO changes in the patient's condition. Risks, benefits, and alternatives have been discussed and questions answered. Patient agrees to proceed with procedure.
[2021-12-26 11:41] VITALS: BP 104/53; PULSE 98; RESP 19; O2SAT 97
[2021-12-26 11:51] VITALS: BP 95/50; PULSE 99; RESP 22; O2SAT 95
[2021-12-26 12:01] VITALS: BP 96/58; PULSE 85; RESP 17; O2SAT 96
== END 2021-12-26 12:20 | disposition home or self-care (01) ==
PROVIDERS: Visit Provider Internal Medicine Gastroenterology
PROC: 0DJ08ZZ Inspection of Upper Intestinal Tract, Via Natural or Artificial Opening Endoscopic (ICD-10-PCS; CPT 43235; principal; 2021-12-26 13:30)
DX: R13.10 Dysphagia, unspecified (principal); K22.5 Diverticulum of esophagus, acquired; K44.9 Diaphragmatic hernia without obstruction or gangrene; R11.2 Nausea with vomiting, unspecified; R63.4 Abnormal weight loss; I10 Essential (primary) hypertension; E78.5 Hyperlipidemia, unspecified; K58.1 Irritable bowel syndrome with constipation; J45.909 Unspecified asthma, uncomplicated; F17.210 Nicotine dependence, cigarettes, uncomplicated; Z79.51 Long term (current) use of inhaled steroids
CPT/HCPCS: 43239; 43247; 43249; 88305; 88313; C1726; J2704; J7120